=== PATIENT | male | born 1955 | race Caucasian/White ===

== ENCOUNTER 2019-06-06 12:01 | Inpatient (IN) ==
[2019-06-06] MEDS ORDERED: ALBUT/IPRATROP 3MG/0.5MG NEB 3 ML VIAL INH STA (13:02)
--- NOTE | 2019-06-06 13:24 | XRay Report ---
XR chest 1V portable CLINICAL HISTORY: SOB COMPARISON STUDY: No previous studies for comparison. FINDINGS: Moderate cardiomegaly. Prominent pulmonary vasculature. Small bilateral pleural effusions. PICC catheter in superior vena cava. IMPRESSION: 1. Congestive heart failure. 2. PICC catheter positioned in the superior vena cava. ACT 112: Negative or not required by law. The above report was generated using voice recognition software. It may contain grammatical, syntax or spelling errors. Electronically signed by: Pelon Posadas M.D. 06/06/2019 1:23 PM
[2019-06-06 13:43] LABS: Basophils # (auto) 0.02 K/uL (0-0.2); Basophils % (auto) 0.3 %; Eosinophils # (auto) 0.22 K/uL (0-0.5); Eosinophils % (auto) 3.4 %; Hematocrit (blood only) 27.6 % (42-52); Hemoglobin 8.8 g/dL (14.0-18.0); Immature Granulocytes # (auto) 0.07 K/uL (0.00-0.02); Immature Granulocytes % (auto) 1.1 %; Lymphocytes # (auto) 0.77 K/uL (1.2-3.4); Lymphocytes % (auto) 11.8 %; Mean Corpuscular Hemoglobin 30.1 pg (25-34); Mean Corpuscular Hgb Conc 31.9 g/dL (32-36); Mean Corpuscular Volume 94.5 fL (80-100); Mean Platelet Volume 9.4 fL (7.4-10.4); Monocytes # (auto) 0.81 K/uL (0.11-0.59); Monocytes % (auto) 12.4 %; Neutrophils # (auto) 4.66 K/uL (1.4-6.5); Platelet Count 202 K/uL (130-400); RDW Coefficient of Variation 13.7 % (11.5-14.5); RDW Standard Deviation 47.4 fL (36.4-46.3); Red Blood Count 2.92 M/uL (4.7-6.1); White Blood Count 6.55 K/uL (4.8-10.8)
[2019-06-06 14:00] LABS: INR 1.3 (0.9-1.1); Partial Thromboplastin Ratio 0.8; Partial Thromboplastin Time 21.6 Seconds (21.0-31.0); Prothrombin Time 13.4 Seconds (9.0-12.0)
[2019-06-06 14:04] LABS: Alanine Aminotransferase < 6 U/L (12-78); Albumin Level 1.8 gm/dl (3.4-5.0); Aspartate Aminotransferase 26 U/L (15-37); BUN Creatinine Ratio 7.1 (10-20); Blood Urea Nitrogen 24 mg/dl (7-18); Calcium 7.6 mg/dl (8.5-10.1); Carbon Dioxide 33 mmol/L (21-32); Chloride 104 mmol/L (98-107); Creatinine Clr Calc Pharmacy 26.8 ml/min; Est GFR (African American) 20.9; Glucose 96 mg/dl (70-99); Magnesium 1.7 mg/dl (1.8-2.4); Potassium 3.3 mmol/L (3.5-5.1); Sodium 139 mmol/L (136-145)
[2019-06-06 14:10] LABS: Albumin Globulin Ratio 0.3 (0.9-2); Alkaline Phosphatase 74 U/L (45-117); Bilirubin,Total < 0.1 mg/dl (0.2-1); Globulin 5.7 gm/dl (2.5-4.0); NT Pro B Type Natriuretic Pept 14276 pg/ml (0-900); Total Protein 7.5 gm/dl (6.4-8.2); Troponin I < 0.015 ng/ml (0-0.045)
[2019-06-06] MEDS ORDERED: FUROSEMIDE 40 MG/4 ML VIAL IV STA (14:26)
[2019-06-06] MEDS ORDERED: NITROGLYCERIN 2% OINTMENT 30GM TUBE EXT STA (14:26)
--- NOTE | 2019-06-06 15:23 | Ultrasound Report ---
US venous doppler LE BI HISTORY: Pain. Edema. swelling COMPARISON STUDY: None. FINDINGS: There is normal compressibility, flow, and augmentation within the bilateral lower extremit y deep venous systems. IMPRESSION: No DVT within the right or left lower extremity. ACT 112: Negative or not required by law. The above report was generated using voice recognition software. It may contain grammatical, syntax or spelling errors. Electronically signed by: Pelon Posadas M.D. 06/06/2019 3:22 PM
--- NOTE | 2019-06-06 15:24 | Ultrasound Report ---
US venous doppler UE LT HISTORY: Pain. Edema. poss clot COMPARISON STUDY: None. FINDINGS: The internal jugular vein is patent. There is normal flow within the subclavian vein. There is normal flow and compressibility within the left axillary, basilic, brachial, radial, ulnar, and v isualized cephalic veins. IMPRESSION: No DVT within the upper extremity. ACT 112: Negative or not required by law. The above report was generated using voice recognition software. It may contain grammatical, syntax or spelling errors. Electronically signed by: Pelon Posadas M.D. 06/06/2019 3:23 PM
--- NOTE | 2019-06-06 16:38 | Nephrology Consultation ---
Date of Consultation June 06, 2019 Assessment & Plan (1) GALEN (acute kidney injury): presenting creatinine 3.4; had been on progressive uptrend since 05/23 [facility] d/c. not oliguric. concern for glomerular process most likely given persistent gross hematuria versus acute interstitial nephritis; less likely ATN or prerenal process -check uacm and protein/creat ratio spot> see above -bladder scan post void q shift at least 2X and place mera for > 250 mL retained urine>has mera -daily bmp -Follow-up complement levels from [facility] which were pending at hospital discharge obtain records of weekly chemistries, hemoglobin, ESR that were planned at May 23 hospital discharge from [facility] >>these are in [employer] [facility] vancomycin as allergy (rash; possible AIN); pharmacy aware and updating Moderately low potassium and we are initiating diuresis: We will give 40 mill equivalents potassium now then 20 mill equivalents 3 times daily to start p.o. Present on Admission?: Yes (2) CHF (congestive heart failure): no prior history of this based on limited records available -will need careful diuresis: For now recommend strict intake and output, additional 40 mg IV Lasix x1 this evening then 40 mg IV Lasix 3 times daily starting tomorrow -Defer fluid limit for now will order less than 2 g daily sodium diet Follow-up pending echocardiogram -daily standing wt if possible Present on Admission?: Yes (3) Anemia: presenting hgb 8.8 -no indication for transfusoin; monitor for need -low iron stores noted; if no bacteremia, consider iron load Present on Admission?: Yes (4) Hematuria: suspect glomerular hematuria, given nephrotic range proteinuria given volume overload. Differential favors postinfectious glomerulonephritis, acute interstitial nephritis, mesangioproliferative glomerulonephritis. Not likely IgA nephropathy or thin basement membrane disease in this context. not a new issue - this was present last month per records cannot rule out need for renal biopsy though w/ his body habitus he may be a poor candidate -Follow-up renal imaging Obtain serologies sent at [facility] [place] (requested) as well as urine testing and nephro c/s, last nephro note there -Ordered sed rate for the morning as well as serologies; need to ask lab [facility] how to obtain anti GBM Ab ordered 3 separate specimens of urine for urine eosinophils Low threshold for urology consult given smoking and cancer /chemotherapy history -- likelier a glomerular process however Present on Admission?: Yes History of Present Illness Reason for Consultation: GALEN Requesting Physician: Dr. Teague Attending Physician: Dr. Teague History of Present Illness 64 y/o M whom I'm asked to see for GALEN after he was admitted here today for evaluation of altered mental status, new hypoxia and found on presentation to have acute renal failure w/ presenting creatinine 3.4. PMH includes rectal cancer completed CTX 2016 and also underwent surgery, chronic neuropathy which predates CA tx, chronic back pain, HTN, schizophrenia, depression, remote hx of EtOH and tobacco abuse, HL, chronic LLE edema, osteoarthritis right hip, status post lumbar laminectomy. Reported history of stones which needed no urologic intervention. Also recent extensive admission April 28 - May 23 at [facility] for MSSA bacteremia w/ sacral epidural and iliopsoas abscesses. Of note he was treated initially with vancomycin but developed a drug rash. Discharged on 2 g of cefazolin every 8 hours with 8 weeks of therapy planned, end date July 07, 2019. Discharge creatinine from [facility] 1.6 on May 23, 2019. D ischarge hemoglobin was 8.5. he also developed gross hematuria, present on May 22, 2019; as well as acute kidney injury. Baseline creatinine 0.7 early in the admission. 1.6 appears to have been peak creatinine on records available to me. there was concern for postinfectious GN versus acute i nterstitial nephritis from the antibiotics. There were occasional eosinophils noted in his urinary sediment on at least one occasion Renal ultrasound was negative. C3 and C4 were pending at discharge on the day prior to discharge. He was slated to follow-up in [place] with Dr. Canchola in nephrology. Plan at hospital discharge was for weekly CBC, CMP, ESR. Creatinine last week was 2.2; this week was 3.4. the patient received 40 mg of Lasix IV in the emergency department. Urine output documented with this and bladder scan negative for urinary retention. Noted on straight cath to have significant gross hematuria: Urinalysis with bright red blood, no evidence of infection, 6.5 g proteinuria on spot ratio. He follows w/ [facility] oncology, saw them 03/2019 and no evidence of recurrence and for 6 mo f/u. his creatinine in 03/2019 was 1.0; no full chem panel at the time. Patient states he has been starting to regain appetite, has been voiding gross blood since last month; denies uncontrolled pain or sob; denies n/v; + pedal but no other edema. states PT at [facility] not going well b/c tires easily and "b/c I'm lazy." No hx of following w/ urology in the past. No FH of CKD/ESRD. Allergies Allergy/AdvReac Type Severity Reaction Status Date / Time Penicillins Allergy Severe anaphylaxis Unverified 06/06/19 13:56 vancomycin Allergy Severe Rash Verified 06/06/19 18:53 chlordiazepoxide AdvReac Unknown nausea/vomi Unverified 06/06/19 13:56 ting tramadol AdvReac Unknown heart Unverified 06/06/19 13:56 racing Home Medications Home Medications Medication Instructions Recorded Confirmed Type aripiprazole 10 mg PO HS 02/21/19 06/06/19 History clorazepate dipotassium 7.5 mg PO QID 02/21/19 06/06/19 History cyclobenzaprine 10 mg PO BID 02/21/19 06/06/19 History divalproex 500 mg PO HS 02/21/19 06/06/19 History duloxetine 60 mg PO QAM 02/21/19 06/06/19 History famotidine 40 mg PO QAM 02/21/19 06/06/19 History gabapentin 200 mg PO TID 02/21/19 06/06/19 History Calcium-Vitamin D3 250-125mg 1 tab PO TID 06/06/19 06/06/19 History Heparin Flush 5ml 5 ml IV Q6H 06/06/19 06/06/19 History atenolol 25 mg PO QAM 06/06/19 06/06/19 History atorvastatin 20 mg PO QAM 06/06/19 06/06/19 History cefazolin in 0.9% sod chloride 2 g IV Q8H 06/06/19 06/06/19 History divalproex [Depakote] 250 mg PO QAM 06/06/19 06/06/19 History quetiapine [Seroquel XR] 300 mg PO HS 06/06/19 06/06/19 History Patient History Medical History Anxiety and depression Chronic thromboembolic pulmonary hypertension Constipation GERD (gastroesophageal reflux disease) High cholesterol History of alcohol abuse History of colon cancer s/p colostomy/reversal, s/p chemo/xrt (years ago) History of kidney stones Obesity Peripheral neuropathy Schizophrenia Surgical History History of colonoscopy History of colostomy History of colostomy reversal History of tonsillectomy Family History Other Family history of alcoholism Social History Preferred Language: Greenlandic Communication Ability: Effective Communication Ability Comment: short term memory Investor Required: No Beliefs That Will Affect Care: Yarsanism Yarsanism Beliefs: SABIANISM Current Living Situation: Alone Other Information That Helps Us Care for You: No Feels Safe at Home: Yes Safety Concerns: Feels Safe At This Time Smoking Status: Former smoker Tobacco Type: cigarettes ; Cigarettes Per Day: 1 PPD ; Hx Alcohol Use: No (Hx heavy ETOH use (no current ETOH use)) Hx Substance Use: Yes substance use type: other Substance Use Type Other:: "occasional joint"- inhalation; most recent 02/2019-- advised Review of Systems Review of Systems: All systems reviewed & are unremarkable except as noted in HPI & below Physical Exam 2 Constitutional: well developed, well nourished, + obese, cooperative and + edematous; no acute distress on 02NC 3L Eyes: EOM intact bilaterally ENMT: Ears: no external ear abnormality Nose: no external nose abnormality Mouth: + dry oral mucous membranes Neck: no nuchal rigidity Respiratory: normal respiratory effort Auscultation: + breath sounds absent (BL bases), + diminished lung sounds and + rhonchi (occasional lower post mario) Cardiovascular: Rate/Rhythm: regular rate and regular rhythm (occasional skipped beat) Extremities: + edema (2-3+ to hips) Gastrointestinal (Abdomen): Inspection/Auscultation: normal bowel sounds; abdomen not distended Percussion/Palpation: abdomen soft; abdomen nontender and no guarding Musculoskeletal: Extremities: strength 5/5 throughout generalized weakness; struggles to roll for lung exam Skin: no rashes, warm and dry Neurologic: marked psychomotor delay in movement and speech; resting BLUE variable tremor Psychiatric: Orientation: alert, oriented to person, oriented to place and cooperative Eye Contact: good eye contact Motor Behavior: + psychomotor retardation Affect: + blunted affect Genitourinary: mera w/ ample light red urine no clots Results & Data Vital Signs (Past 12 Hours) Vital Signs Temp Pulse Pulse Resp BP BP Pulse Ox 06/06/19 15:59 89 20 147/80 H 96 06/06/19 15:29 100 H 22 153/81 H 97 06/06/19 14:40 98 H 20 195/124 H 99 06/06/19 14:39 99 H 20 98 06/06/19 13:31 78 20 96 06/06/19 13:28 98 06/06/19 13:27 83 24 164/101 H 98 06/06/19 12:04 36.7 C 92 H 14 155/100 H 96 Laboratory Results 06/06/19 13:20 06/06/19 13:20 Diagnostic Findings cxr FINDINGS: Moderate cardiomegaly. Prominent pulmonary vasculature. Small bilateral pleural effusions. PICC catheter in superior vena cava. IMPRESSION: 1. Congestive heart failure. 2. PICC catheter positioned in the superior vena cava. Dopplers BLE and one UE negative for DVT Renal ultrasound report pending (1) CHF (congestive heart failure) Heart failure chronicity: unspecified Heart failure type: unspecified Qualified Code(s): I50.9 - Heart failure, unspecified (2) Anemia Anemia type: unspecified type Qualified Code(s): D64.9 - Anemia, unspecified
[2019-06-06 16:56] LABS: Appearance Urine Cloudy (Clear); Bacteria Urine Automated Negative (Negative); Bilirubin Urine Negative (Negative); Blood Urine 3+ (Negative); Color Urine Red; Glucose Urine UA Negative (Negative); Ketones Urine Negative (Negative); Leukocyte Esterase Urine 1+ (Negative); Nitrite Urine Negative (Negative); RBC Urine Automated >30 /hpf (0-4); Specific Gravity Urine 1.009 (1.000-1.030); Urobilinogen Urine Negative (Negative); pH Urine 7.5 (4.5-7.5)
[2019-06-06 17:12] LABS: Protein Urine 2+ (Negative); Sulfosalicylic Acid Urine Positive (Negative)
--- NOTE | 2019-06-06 17:17 | History & Physical Report ---
Date of Service June 06, 2019 Assessment & Plan (1) Altered mental status: (2) Hypoxia: (3) CHF (congestive heart failure): This is a 64-year-old male who has significant past medical history of history of rectal cancer status post resection and chemo and radiation in remission, schizophrenia, psychosis, depression with anxiety, hypertension, hyperlipidemia, GERD, history of alcohol and tobacco abuse, chronic thromboembolic pulmonary hypertension, autonomic peripheral neuropathy who presents to ED due to shortness of breath of unknown duration. Patient admitted to [facility] 05/08 to 05/23/2019 secondary to MSSA bacteremia, sacral epidural abscess, iliopsoas abscess, close sacral fracture placed on IV antibiotics cefazolin 2 g every 8 hours until 07/05/2019 Admitted to SNF 05/23/2019 with noted worsening confusion, lethargy, shortness of breath, concern for left upper extremity DVT. In ED patient was found to be significantly volume overload, chest x-ray with evidence of failure bilateral pleural effusions, worsened GALEN creatinine 3.36, platelet abnormalities and hematuria Admit to PCU Spoke with Dr. Peterson nephrology recommends IV Lasix 40 mg x 1 this evening and then 40 mg 3 times daily starting tomorrow Replace electrolytes appropriately Renal ultrasound pending, CT abdomen pelvis pending Echocardiogram ordered Daily weights, I's and O's Serial BMP (4) GALEN (acute kidney injury): BUN/creatinine 24 and 3.36 Creatinine September/2018 0.9 Creatinine at discharge from [facility] 05/21 1.59 Unknown etiology, + hematuria Bladder scan was negative for significant urinary retention Obtain renal ultrasound Urinalysis and urine studies pending Consult nephrology, proceed their input Hold IV cefazolin for now ? If ATN from antibiotic (5) Electrolyte abnormality: Replace K3.3, 40 M EQ x1 now and 20 M EQ 3 times daily Mag 1.7, 1 g mag sulfate now, repeat mag in a.m. (6) Epidural abscess: MSSA bacteremia Was on IV cefazolin 2 g every 8 hours Hold IV cefazolin for now, consult infectious disease Sensitivities to be placed in chart -sensitive to doxycycline, daptomycin, Cipro, gentamicin, levofloxacin, linezolid, Bactrim, tigecycline, Vanco Blood cultures are currently pending Antibiotic to complete 07/05/[address] (7) Iliopsoas abscess: MSSA bacteremia Was on IV cefazolin 2 g every 8 hours Hold IV cefazolin for now, consult infectious disease Sensitivities to be placed in chart -sensitive to doxycycline, daptomycin, Cipro, gentamicin, levofloxacin, linezolid, Bactrim, tigecycline, Vanco Blood cultures are currently pending Antibiotics to complete 07/05/2019 (8) Hematuria: Significant hematuria noted grossly with urination UA positive for RBC Renal ultrasound pending (9) Anemia: H&H 8.8 and 27.6 Only notable signs of bleeding is hematuria normocytic normochromic Iron panel, vitamin B12 and folic acid pending Possibly in setting of acute on chronic disease with bacteremia and iliopsoas and epidural abscess (10) Schizophrenia: Continue Abilify, Depakote, Seroquel Stable low Threshold to consult psychiatry given multiple psychiatric medications (11) Anxiety and depression: Continue Cymbalta, clorazepate (12) High cholesterol: Continue statin (13) DVT prophylaxis: SCD/teds Avoid chemical prophylaxis for now given significant hematuria noted with voiding Disposition: Admit to PCU, likely will need to return to SNF Follow-up: PCP Dr. Larsen upon discharge Patient was seen and examined in collaboration Dr. Teague, please see addendum History of Present Illness Chief Complaint: Shortness of breath x unknown duration. Primary Care Provider: Juice Garner This is a 64-year-old male who has significant past medical history of history of rectal cancer status post resection and chemo and radiation in remission, schizophrenia, psychosis, depression with anxiety, hypertension, hyperlipidemia, GERD, history of alcohol and tobacco abuse, chronic thromboembolic pulmonary hypertension, autonomic peripheral neuropathy who presents to ED due to shortness of breath of unknown duration. Patient is a very poor historian. His tory is obtained from other providers as well as [facility]. Apparently patient was sent to ED because of concern for blood clot in left upper extremity where he has a PICC line in place. An ultrasound was done at outside facility which was concerning for DVT. However, our ED physician ruled out DVT of left upper extremity and found patient to have evidence of congestive heart failure, new GALEN and anemia of unknown etiology. After speaking with [facility] it was found patient was hospitalized at [facility] on 05/08 to 05/23/2019 secondary to bacteremia due to MSSA secondary to iliopsoas abscess and sacral epidural abscess. He was placed on IV cefazolin 2 g every 8 hours. Left upper extremity PICC line was placed and he was transferred to SNF on 05/23/2019. At discharge patient H&H was 9.7, creatinine 1.59. According to nurse at SNF on admission patient was very alert and arousable and oriented. Over the past 15 days he has been becoming increasingly more confused and lethargic. He has been continuing to receive his IV antibiotics. Oral intake has been adequate per staff. I am unable to obtain accurate information from patient as he is currently confused stating he came from his apartment in [place]. He is unable to tell me why he is here. In ED work-up revealed elevated BUN and creatinine 24 and 3.36, K3.3, mag 1.7, proBNP 14,276, albumin 1.8, H&H 8.8 and 27.6, WBC 6.55. Chest x-ray revealed congestive heart failure, PICC placement in superior vena cava, small bilateral pleural effusions. Venous doppler or b/l lower ext and LUE negative for DVT. He received 40mg IV lasix while in ED. Allergies Allergy/AdvReac Type Severity Reaction Status Date / Time Penicillins Allergy Severe anaphylaxis Unverified 06/06/19 13:56 vancomycin Allergy Severe Rash Verified 06/06/19 18:53 chlordiazepoxide AdvReac Unknown nausea/vomi Unverified 06/06/19 13:56 ting tramadol AdvReac Unknown heart Unverified 06/06/19 13:56 racing Home Medications Home Medications Medication Instructions Recorded Confirmed Type aripiprazole 10 mg PO HS 02/21/19 06/06/19 History clorazepate dipotassium 7.5 mg PO QID 02/21/19 06/06/19 History cyclobenzaprine 10 mg PO BID 02/21/19 06/06/19 History divalproex 500 mg PO HS 02/21/19 06/06/19 History duloxetine 60 mg PO QAM 02/21/19 06/06/19 History famotidine 40 mg PO QAM 02/21/19 06/06/19 History gabapentin 200 mg PO TID 02/21/19 06/06/19 History Calcium-Vitamin D3 250-125mg 1 tab PO TID 06/06/19 06/06/19 History Heparin Flush 5ml 5 ml IV Q6H 06/06/19 06/06/19 History atenolol 25 mg PO QAM 06/06/19 06/06/19 History atorvastatin 20 mg PO QAM 06/06/19 06/06/19 History cefazolin in 0.9% sod chloride 2 g IV Q8H 06/06/19 06/06/19 History divalproex [Depakote] 250 mg PO QAM 06/06/19 06/06/19 History quetiapine [Seroquel XR] 300 mg PO HS 06/06/19 06/06/19 History Past Med/Surg History Medical History Anxiety and depression Chronic thromboembolic pulmonary hypertension Constipation GERD (gastroesophageal reflux disease) High cholesterol History of alcohol abuse History of colon cancer s/p colostomy/reversal, s/p chemo/xrt (years ago) History of kidney stones Obesity Peripheral neuropathy Schizophrenia Surgical History History of colonoscopy History of colostomy History of colostomy reversal History of tonsillectomy Family History Other Family history of alcoholism Social History Preferred Language: Pakistani Communication Ability: Effective Communication Ability Comment: short term memory 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 Beliefs That Will Affect Care: Sabianism Sabianism Beliefs: ADVENT Current Living Situation: Alone Other Information That Helps Us Care for You: No Feels Safe at Home: Yes Safety Concerns: Feels Safe At This Time Smoking Status: Former smoker Tobacco Type: cigarettes ; Cigarettes Per Day: 1 PPD ; Hx Alcohol Use: No (Hx heavy ETOH use (no current ETOH use)) Hx Substance Use: Yes substance use type: other Substance Use Type Other:: "occasional joint"- inhalation; most recent 02/2019-- advised Review of Systems Review of Systems: All systems reviewed & are unremarkable except as noted in HPI & below Physical Exam Physical Exam: Constitutional: WD/WN, obese, male, arousable, answers questions but inaccurately, vitals as above, NAD, sitting up in bed Head: Normocephalic, Atraumatic Eyes: PERRL, conjunctivae normal, anicteric sclerae ENMT: external ear and nose normal, oropharynx normal Neck: trachea midline, no thyromegaly normal visual inspection Respiratory: normal respiratory effort, lungs decreased bilaterally with bibasilar rhonchi, no wheezes or rales, on O2 via NCi. Normal insp/exp effort, no accessory muscle use Cardiovascular: RRR, no murmur, bilateral +2 lower extremity edema, scrotal edema, generalized anasarca, left upper extremity PICC line in place, bilateral radial pulse +2 and equal, no surrounding erythema, warmth. Vessels: no JVD or carotid bruit Chest: normal inspection of chest Abdomen: normal bowel sounds, protuberant abdomen, soft, nontender, no hepatosplenomegaly Musculoskeletal: no cyanosis or clubbing, extremities motor strength 5/5 Skin: no rashes, warm and dry normal turgor Neurologic: PERRL, EOMI, accommodation nl, no face palsy, no dysarthria CN's II-XI intact bilaterally and moves all extremities Psychiatric: A+Ox3 to basics only, euthymic affect Lymphatic: no cervical or axillary lymphadenopathy : deferred Results & Data Vital Signs (Past 12 Hours) Vital Signs Temp Pulse Pulse Resp BP BP Pulse Ox 06/06/19 15:59 89 20 147/80 H 96 06/06/19 15:29 100 H 22 153/81 H 97 06/06/19 14:40 98 H 20 195/124 H 99 06/06/19 14:39 99 H 20 98 06/06/19 13:31 78 20 96 06/06/19 13:28 98 06/06/19 13:27 83 24 164/101 H 98 06/06/19 12:04 36.7 C 92 H 14 155/100 H 96 Laboratory Results Short CBC 06/06/19 06/06/19 06/06/19 Range/Units 13:20 13:20 16:40 WBC 6.55 (4.8-10.8) K/uL Hgb 8.8 L (14.0-18.0) g/dL Hct 27.6 L (42-52) % Plt Count 202 (130-400) K/uL BUN 24 H (7-18) mg/dl Creatinine 3.36 H (0.6-1.4) mg/dl Urine Color Red BMP 06/06/19 13:20 Sodium 139 Potassium 3.3 L Chloride 104 Carbon Dioxide 33 H BUN 24 H Creatinine 3.36 H Glucose 96 Calcium 7.6 L Cardiac Enzymes 06/06/19 Range/Units 13:20 Troponin I < 0.015 (0-0.045) ng/ml Liver Function 06/06/19 Range/Units 13:20 Total Bilirubin < 0.1 L (0.2-1) mg/dl AST 26 (15-37) U/L ALT < 6 L (12-78) U/L Alkaline Phosphatase 74 (45-117) U/L Albumin 1.8 L (3.4-5.0) gm/dl Urine 06/06/19 Range/Units 16:40 Urine Color Red Urine Appearance Cloudy A (Clear) Urine pH 7.5 (4.5-7.5) Ur Specific [place] 1.009 (1.000-1.030) Urine Protein 2+ H (Negative) Urine Glucose (UA) Negative (Negative) Diagnostic Findings CXR: Ext Doppler: IMPRESSION: No DVT within the right or left lower extremity. IMPRESSION: No DVT within the right or left lower extremity. Medications Administered Discontinued Medications Albuterol (Duoneb) 3 ml INH NOW STA Stop: 06/06/19 13:03 Last Admin: 06/06/19 13:30 Dose: 3 ml Documented by: [id number] Furosemide (Lasix) 40 mg IV NOW STA Stop: 06/06/19 14:27 Last Admin: 06/06/19 15:31 Dose: 40 mg Documented by: [id number] Nitroglycerin (Nitro-Bid 2%) 2 inch EXT NOW STA Stop: 06/06/19 14:27 Last Admin: 06/06/19 14:46 Dose: 2 inch Documented by: [id number] ECG Rate (beats per minute): 89 Rhythm: normal sinus Findings: + PAC Code Status & VTE Plan Code Status Full Code VTE Prophylaxis Plan VTE Prophylaxis will be ordered: Yes Reason for no VTE drug order: Contraindicated Supervising Physician Co-Signing Physician Notes I have seen and examined the patient with physician call center assistant and would like to comment that On exam -Patient presented from [facility] apparently on IV antibiotics with PICC line for MSSA epidural abscess; patient sent here for confusion. during exam in the emergency room, patient awake and answers questions but gave a history that suggested that he came from his own apartment when in fact he is a current resident at [facility]. -Lung exam: normal respiratory effort, some congestion of the bases of the lung mario -Heart exam regular rate -PICC of left upper extremity -Abdomen: soft, nontender, positive bowel sounds -: mera placed on this admission with pink tinged urine ALTERED MENTAL STATUS HYPOXIA likely from ACUTE CONGESTIVE HEART FAILURE ACUTE KIDNEY INJURY ELECTROLYTE ABNORMALITY: HYPOKALEMIA, HYPOMAGNESEMIA GROSS HEMATURIA HISTORY OF EPIDURAL ABSCESS/ILIOPSOAS abscess/MSSA Bacteremia PRESENCE OF PICC LINE -history of treatment of IV antibiotics wit cefazolin for MSSA bacteremia -concern at this time is whether cefazolin has side effects such as the acute kidney injury -have requested nephrology consult but disagree with increasing the diuresis as the creatinine is already rising from admission of 3.36 to 3.52 already. In this month of May 2019, his previous creatinines were 1.67 and 2.24 -have therefor stopped any subsequent increases in furosemide -while patient has hypoxia and fluid overload of the lungs, he is relatively stable on 2 to 3 liters/min and so conservative management of volume status can be done -ultrasound of the lung mario to assess if any pleural effusions -CT abdomen did not show ureteral stone obstruction but there is hematuria now -will need Infectious disease consult to further advise any changes to outpatient antibiotic regimen -because if is unclear as to the when this PICC line was placed, medical doctor has placed communication to avoid use of PICC line for IV medications or blood d raws for now unless otherwise authorized by a medical doctor -follow cultures drawn on this admission -replace electrolytes of potassium or magnesium with oral or IV supplements with peripheral IV access My colleague Dr. Perla will follow the patient starting on 06/07/2019 (1) CHF (congestive heart failure) Heart failure chronicity: unspecified Heart failure type: unspecified Qualified Code(s): I50.9 - Heart failure, unspecified (2) Anemia Anemia type: unspecified type Qualified Code(s): D64.9 - Anemia, unspecified
[2019-06-06 17:46] LABS: Ferritin 293.5 ng/ml (8-388); Folate (Folic Acid) 12.44 ng/ml (>5.38); T4 Free Thyroxine 1.04 ng/dl (0.8-1.6); Thyroid Stimulating Hormone 1.87 uIu/ml (0.300-4.500)
[2019-06-06 17:52] LABS: Creatinine Urine Random 33.8 mg/dl; Protein Creatinine Ratio Urine 6.5 (0-0.2); Total Protein Urine Random 218.8 mg/dl (0-11.9)
--- NOTE | 2019-06-06 18:24 | Ultrasound Report ---
US effusion-chest/mediastinum CLINICAL HISTORY: CHF, pleural effusion COMPARISON STUDY: No previous studies for comparison. FINDINGS: Ultrasonography the chest was performed. There are bilateral pleural effusions with underly ing atelectatic lung. The right pleural effusion is estimated measure 550 cc, the left pleural effusi on 530 cc. IMPRESSION: Bilateral pleural effusions estimated to measure 550 cc on the right and 530 cc on the l eft. ACT 112: Negative or not required by law. Electronically signed by: Rey Zambrano M.D. 06/06/2019 6:23 PM
--- NOTE | 2019-06-06 18:27 | Ultrasound Report ---
EXAMINATION: RENAL ULTRASOUND CLINICAL HISTORY: Acute renal insufficiency COMPARISON STUDY: FINDINGS: The right kidney measures 14 cm. The left kidney measures 14 cm. There is no evidence of h ydronephrosis. There is a suspected 8 mm lower pole left renal calculus. There is increased renal co rtical echogenicity consistent with medical renal disease. No bladder masses were visualized. The right ureteral jet was not visualized. IMPRESSION : 1. No renal masses identified. No evidence of hydronephrosis 2. Slight increase in renal cortical echogenicity, a finding consistent with medical renal disease 3. Left-sided nephrolithiasis ACT 112: Negative or not required by law. Electronically signed by: Rey Zambrano M.D. 06/06/2019 6:25 PM
--- NOTE | 2019-06-06 18:32 | CT Scan Report ---
CT SCAN OF THE ABDOMEN AND PELVIS WITHOUT CONTRAST CLINICAL HISTORY: Abdominal pain COMPARISON STUDY: Renal ultrasound dated 06/06/2019 TECHNIQUE: CT scan of the abdomen and pelvis was performed from the lung bases to the proximal femurs . Images are reviewed in the axial, sagittal, and coronal planes. IV contrast was not administered fo r this examination. A dose lowering technique was utilized adhering to the principles of ALARA. CT DOSE: 1368.51 mGy.cm FINDINGS: Lower chest: There are moderate bilateral pleural effusions. There is a small pericardial effusion. T here are dependent lower lobe atelectatic changes. Liver: The unenhanced liver is normal in size, contour, and attenuation. There is no intrahepatic sofie iary ductal dilatation. Gallbladder: Unremarkable. Spleen: Normal in size and attenuation. Pancreas: Unremarkable. Adrenal glands: Unremarkable. Kidneys: There is no hydronephrosis. There are several left renal calculi, the largest of which measu res 6 mm. No ureteral or bladder calculi are visualized. Bowel: There are no transition zones to indicate bowel obstruction. There are no findings to indicate acute appendicitis. There is a low rectosigmoid anastomotic suture line. There is presacral soft tis pearl thickening, possibly treatment related. There is a right anterior mid abdominal bowel anastomotic suture line. Peritoneum: There is no free air. There is trace pelvic fluid/retroperitoneal stranding. Vasculature: The abdominal aorta is normal in course and caliber. Adenopathy: None. Pelvic viscera: Prostatic calcifications are visualized. The prostate is borderline enlarged. Skeletal structures: No destructive osseous lesions are seen. Infiltration of subcutaneous fat within the right lower quadrant is nonspecific but could relate to a prior ostomy site. IMPRESSION: 1. Postsurgical changes involving the bowel with presacral soft tissue thickening, likely treatment-r elated 2. No evidence of bowel obstruction. No evidence of free air 3. Left-sided nephrolithiasis. No ureteral or bladder calculi identified 4. Moderate bilateral pleural effusions with associated lower lobe compressive atelectatic change 5. Mild generalized body wall edema ACT 112: Negative or not required by law. Electronically signed by: Rey Zambrano M.D. 06/06/2019 6:31 PM
[2019-06-06] MEDS ORDERED: LIDOCAINE 2% JELLY 5 ML TUBE ONE (18:38)
[2019-06-06] MEDS ORDERED: ONDANSETRON INJ 2 MG/ML 2 ML VIAL IV PRN (18:51)
[2019-06-06] MEDS ORDERED: POTASSIUM CHLORIDE 20 MEQ TABCR PO STA (18:51)
[2019-06-06] MEDS ORDERED: ACETAMINOPHEN 325 MG TAB PO PRN (18:51)
[2019-06-06] MEDS ORDERED: POLYETHYLENE (MIRALAX) 17 GM PACK PO PRN (18:51)
[2019-06-06] MEDS ORDERED: MAGNESIUM SULFATE / D5W 1 GM/100 ML BAG IV ONE (19:15)
[2019-06-06] MEDS ORDERED: FUROSEMIDE 40 MG in SYRINGE 0 ML IV ONE (19:30)
--- NOTE | 2019-06-06 19:33 | Emergency Department Note ---
Entered by Mariela Woods acting as a scribe for Santiago Monroe MD History of Present Illness General Chief complaint: Shortness of Breath/Dyspnea Time Seen by Provider: 06/06/19 12:47 Source: patient and EMS Mode of arrival: EMS History of Present Illness Location: upper extremity (left upper) Pain Consistency: + other (episode) Quality: + other (possible DVT) Associated symptoms: + shortness of breath and + other (swelling in bilateral legs) The patient is a 64 year old male that is presenting to the Emergency Room with complaints of an episode of a possible left upper extremity DVT. The patient arrived to the ED via EMS from [facility]. EMS reports that the patients nursing staff stated that the patient has been increasingly short of breath. EMS notes that the patient was thought to have a DVT secondary to a PICC line in his left upper arm. The patient reports that he is unsure why is in the ED today. He states that he feels a little short of breath with speaking. He notes that his feet are swollen. HPI and ROS are unobtainable secondary to the patients mental state. Home Medications Home Medications Medication Instructions Recorded Confirmed Type aripiprazole 10 mg PO HS 02/21/19 06/06/19 History clorazepate dipotassium 7.5 mg PO QID 02/21/19 06/06/19 History cyclobenzaprine 10 mg PO BID 02/21/19 06/06/19 History divalproex 500 mg PO HS 02/21/19 06/06/19 History duloxetine 60 mg PO QAM 02/21/19 06/06/19 History famotidine 40 mg PO QAM 02/21/19 06/06/19 History gabapentin 200 mg PO TID 02/21/19 06/06/19 History Calcium-Vitamin D3 250-125mg 1 tab PO TID 06/06/19 06/06/19 History Heparin Flush 5ml 5 ml IV Q6H 06/06/19 06/06/19 History atenolol 25 mg PO QAM 06/06/19 06/06/19 History atorvastatin 20 mg PO QAM 06/06/19 06/06/19 History cefazolin in 0.9% sod chloride 2 g IV Q8H 06/06/19 06/06/19 History divalproex [Depakote] 250 mg PO QAM 06/06/19 06/06/19 History quetiapine [Seroquel XR] 300 mg PO HS 06/06/19 06/06/19 History Allergies Allergy/AdvReac Type Severity Reaction Status Date / Time Penicillins Allergy Severe anaphylaxis Unverified 06/06/19 13:56 vancomycin Allergy Severe Rash Verified 06/06/19 18:53 chlordiazepoxide AdvReac Unknown nausea/vomi Unverified 06/06/19 13:56 ting tramadol AdvReac Unknown heart Unverified 06/06/19 13:56 racing Past Med/Surg History Medical History Anxiety and depression Chronic thromboembolic pulmonary hypertension Constipation GERD (gastroesophageal reflux disease) High cholesterol History of alcohol abuse History of colon cancer s/p colostomy/reversal, s/p chemo/xrt (years ago) History of kidney stones Obesity Peripheral neuropathy Schizophrenia Surgical History History of colonoscopy History of colostomy History of colostomy reversal History of tonsillectomy Family History Other Family history of alcoholism Social History Preferred Language: Kazakh Communication Ability: Effective Communication Ability Comment: short term memory Wax Engraver Required: No Beliefs That Will Affect Care: Latter Day Latter Day Beliefs: QUAKER Current Living Situation: Alone Other Information That Helps Us Care for You: No Feels Safe at Home: Yes Safety Concerns: Feels Safe At This Time Smoking Status: Former smoker Tobacco Type: cigarettes ; Cigarettes Per Day: 1 PPD ; Hx Alcohol Use: No (Hx heavy ETOH use (no current ETOH use)) Hx Substance Use: Yes substance use type: other Substance Use Type Other:: "occasional joint"- inhalation; most recent 02/2019-- advised Review of Systems HPI and ROS are unobtainable secondary to the patients mental state. Physical Exam Vital Signs Vital Signs - 24 hr 06/06/19 12:04 06/06/19 13:27 06/06/19 13:28 Temperature 36.7 C Temperature Source Oral Pulse Rate 92 H Pulse Rate [Apical] 83 Pulse Rhythm [Apical] Regular Pulse Strength [Apical] Normal Respiratory Rate 14 24 Respiratory Effort / Characteristics Non-Labored Non-Labored Spontaneous Respiratory Depth Normal Normal Blood Pressure 155/100 H Blood Pressure [Right Arm] 164/101 H Blood Pressure Mean 118 Blood Pressure Mean [Right Arm] 122 Blood Pressure Position [Right Arm] Sitting Pulse Oximetry 96 98 98 Oxygen Delivery Method Room Air Nasal Cannula Nasal Cannula Oxygen Flow Rate 3 3 3 Sepsis Recent Fever Within 48 Hours No Sepsis New/Unexplained Change in Mental Status No Sepsis Action Taken by Nursing No Action Required 06/06/19 13:31 06/06/19 14:39 06/06/19 14:40 Temperature Temperature Source Pulse Rate 99 H Pulse Rate [Apical] 78 98 H Pulse Rhythm [Apical] Regular Pulse Strength [Apical] Normal Respiratory Rate 20 20 20 Respiratory Effort / Characteristics Non-Labored Respiratory Depth Normal Blood Pressure Blood Pressure [Right Arm] 195/124 H Blood Pressure Mean Blood Pressure Mean [Right Arm] 147 Blood Pressure Position [Right Arm] Lying Pulse Oximetry 96 98 99 Oxygen Delivery Method Nasal Cannula Nasal Cannula Nasal Cannula Oxygen Flow Rate 3 3 3 Sepsis Recent Fever Within 48 Hours Sepsis New/Unexplained Change in Mental Status Sepsis Action Taken by Nursing 06/06/19 15:29 06/06/19 15:59 Temperature Temperature Source Pulse Rate Pulse Rate [Apical] 100 H 89 Pulse Rhythm [Apical] Pulse Strength [Apical] Respiratory Rate 22 20 Respiratory Effort / Characteristics Non-Labored Spontaneous Non-Labored Spontaneous Respiratory Depth Blood Pressure Blood Pressure [Right Arm] 153/81 H 147/80 H Blood Pressure Mean Blood Pressure Mean [Right Arm] 105 102 Blood Pressure Position [Right Arm] Lying Lying Pulse Oximetry 97 96 Oxygen Delivery Method Nasal Cannula Nasal Cannula Oxygen Flow Rate 3 Sepsis Recent Fever Within 48 Hours Sepsis New/Unexplained Change in Mental Status Sepsis Action Taken by Nursing GENERAL: Patient is in no acute distress. HEENT: No acute trauma, normocephalic atraumatic, mucous membranes moist, no nasal congestion, no scleral icterus. NECK: No stridor, no adenopathy, no meningismus, trachea is midline. LUNGS: Wheezing bilaterally. No crackles. No respiratory distress. Equal breath sounds. HEART: Without murmurs gallops or rubs, regular rate and rhythm. ABDOMEN: Soft, nontender, bowel sounds positive, no hernias, no peritonitis. EXTREMITIES: No cyanosis, full range of motion of all the joints without pain or difficulty, no signs for acute trauma. Moderate bilateral pedal edema. PICC line in left medial bicep. NEUROLOGIC: Awake and alert, no acute motor or sensory deficits, no focal weakness. SKIN: No rash, no jaundice, no diaphoresis. Course Course 1256:The patient was evaluated in room A04B. A complete history and physical examination was performed. 1531: I discussed the patients case with JACKY Lopez, who will evaluate the patient for further management and care with Dr. Teague as the attending physician. 1600: Upon reevaluation, the patient is resting comfortably. I discussed laboratory and radiographic results with the patient. He verbalized agreement of the treatment plan. The patient will be evaluated for further management and care. Administered Medications Aripiprazole (Abilify) 10 mg PO HS JOSE GUADALUPE Stop: 07/06/19 20:59 Last Admin: 06/06/19 20:02 Dose: 10 mg Documented by: [id number] Divalproex Sodium (Depakote Delay Release) 500 mg PO HS JOSE GUADALUPE Stop: 07/06/19 20:59 Last Admin: 06/06/19 20:03 Dose: 500 mg Documented by: [id number] Multivitamins/Minerals (Caltrate Plus) 1 tab PO TID JOSE GUADALUPE Stop: 07/06/19 20:59 Last Admin: 06/06/19 20:03 Dose: 1 tab Documented by: [id number] Discontinued Medications Albuterol (Duoneb) 3 ml INH NOW STA Stop: 06/06/19 13:03 Last Admin: 06/06/19 13:30 Dose: 3 ml Documented by: [id number] Furosemide (Lasix) 40 mg IV NOW STA Stop: 06/06/19 14:27 Last Admin: 06/06/19 15:31 Dose: 40 mg Documented by: [id number] Magnesium Sulfate/Dextrose (Magnesium Sulfate / D5w) 1 gm in 100 mls @ 100 mls/hr IV ONE ONE Stop: 06/06/19 20:14 Last Admin: 06/06/19 19:58 Dose: 100 mls/hr Documented by: [id number] Furosemide 40 mg/ Syringe 4 mls @ 4 mls/min IV NOW ONE Stop: 06/06/19 19:31 Last Admin: 06/06/19 20:01 Dose: 4 mls/min Documented by: [id number] Nitroglycerin (Nitro-Bid 2%) 2 inch EXT NOW STA Stop: 06/06/19 14:27 Last Admin: 06/06/19 14:46 Dose: 2 inch Documented by: [id number] Potassium Chloride (Klor-Con M20) 40 meq PO NOW STA Stop: 06/06/19 18:52 Last Admin: 06/06/19 20:02 Dose: 40 meq Documented by: [id number] Medical Decision Making Differential Diagnosis Differential diagnosis: Etiologies such as PE, DVT, exacerbation of COPD, anemia, CHF, electrolyte imbalance, coagulopathy, renal or liver failure as well as others were entertained. Medical Records Attestation: I reviewed the patient's medical records. Home Medications Current Medication List: was personally reviewed by me Laboratory Data Attestation: I reviewed the patient's lab results. Result diagrams: 06/06/19 13:20 06/06/19 19:10 Lab Results 06/06/19 06/06/19 06/06/19 Range/Units 13:20 13:20 13:20 WBC 6.55 (4.8-10.8) K/uL RBC 2.92 L (4.7-6.1) M/uL Hgb 8.8 L (14.0-18.0) g/dL Hct 27.6 L (42-52) % MCV 94.5 (80-100) fL MCH 30.1 (25-34) pg MCHC 31.9 L (32-36) g/dL RDW Std Deviation 47.4 H (36.4-46.3) fL RDW Coeff of Eladio 13.7 (11.5-14.5) % Plt Count 202 (130-400) K/uL MPV 9.4 (7.4-10.4) fL Immature Gran % (Auto) 1.1 % Neut % (Auto) 71.0 % Lymph % (Auto) 11.8 % [place] % (Auto) 12.4 % Eos % (Auto) 3.4 % Baso % (Auto) 0.3 % Immature Gran # (Auto) 0.07 H (0.00-0.02) K/uL Neut # (Auto) 4.66 (1.4-6.5) K/uL Lymph # (Auto) 0.77 L (1.2-3.4) K/uL [place] # (Auto) 0.81 H (0.11-0.59) K/uL Eos # (Auto) 0.22 (0-0.5) K/uL Baso # (Auto) 0.02 (0-0.2) K/uL PT 13.4 H (9.0-12.0) Seconds INR 1.3 H (0.9-1.1) APTT 21.6 (21.0-31.0) Seconds PTT Ratio 0.8 Sodium 139 (136-145) mmol/L Potassium 3.3 L (3.5-5.1) mmol/L Chloride 104 (98-107) mmol/L Carbon Dioxide 33 H (21-32) mmol/L Anion Gap 2.0 L (3-11) BUN 24 H (7-18) mg/dl Creatinine 3.36 H (0.6-1.4) mg/dl Est Cr Clr Drug Dosing 26.8 ml/min Est GFR ( Amer) 20.9 Est GFR (Non-Af Amer) 18.0 BUN/Creatinine Ratio 7.1 L (10-20) Glucose 96 (70-99) mg/dl Calcium 7.6 L (8.5-10.1) mg/dl Magnesium 1.7 L (1.8-2.4) mg/dl Total Bilirubin < 0.1 L (0.2-1) mg/dl AST 26 (15-37) U/L ALT < 6 L (12-78) U/L Alkaline Phosphatase 74 (45-117) U/L Troponin I < 0.015 (0-0.045) ng/ml NT-Pro-B Natriuret Pep 79480 H (0-900) pg/ml Total Protein 7.5 (6.4-8.2) gm/dl Albumin 1.8 L (3.4-5.0) gm/dl Globulin 5.7 H (2.5-4.0) gm/dl Albumin/Globulin Ratio 0.3 L (0.9-2) Urine Color Urine Appearance (Clear) Urine pH (4.5-7.5) Ur Specific [place] (1.000-1.030) Urine Protein (Negative) Urine Glucose (UA) (Negative) Urine Ketones (Negative) Urine Blood (Negative) Urine Nitrite (Negative) Urine Bilirubin (Negative) Urine Urobilinogen (Negative) Ur Leukocyte Esterase (Negative) Urine WBC (Auto) (0-5) /hpf Urine RBC (Auto) (0-4) /hpf U Hyaline Cast (Auto) (0-5) /lpf U Epithel Cells (Auto) (0-5) /lpf Urine Bacteria (Auto) (Negative) Ur Random Creatinine mg/dl U Random Total Protein (0-11.9) mg/dl Protein/Creatinin Ratio (0-0.2) Valproic Acid (50-100) mcg/ml 06/06/19 06/06/19 06/06/19 Range/Units 13:20 16:40 16:40 WBC (4.8-10.8) K/uL RBC (4.7-6.1) M/uL Hgb (14.0-18.0) g/dL Hct (42-52) % MCV (80-100) fL MCH (25-34) pg MCHC (32-36) g/dL RDW Std Deviation (36.4-46.3) fL RDW Coeff of Eladio (11.5-14.5) % Plt Count (130-400) K/uL MPV (7.4-10.4) fL Immature Gran % (Auto) % Neut % (Auto) % Lymph % (Auto) % [place] % (Auto) % Eos % (Auto) % Baso % (Auto) % Immature Gran # (Auto) (0.00-0.02) K/uL Neut # (Auto) (1.4-6.5) K/uL Lymph # (Auto) (1.2-3.4) K/uL [place] # (Auto) (0.11-0.59) K/uL Eos # (Auto) (0-0.5) K/uL Baso # (Auto) (0-0.2) K/uL PT (9.0-12.0) Seconds INR (0.9-1.1) APTT (21.0-31.0) Seconds PTT Ratio Sodium (136-145) mmol/L Potassium (3.5-5.1) mmol/L Chloride (98-107) mmol/L Carbon Dioxide (21-32) mmol/L Anion Gap (3-11) BUN (7-18) mg/dl Creatinine (0.6-1.4) mg/dl Est Cr Clr Drug Dosing ml/min Est GFR ( Amer) Est GFR (Non-Af Amer) BUN/Creatinine Ratio (10-20) Glucose (70-99) mg/dl Calcium (8.5-10.1) mg/dl Magnesium (1.8-2.4) mg/dl Total Bilirubin (0.2-1) mg/dl AST (15-37) U/L ALT (12-78) U/L Alkaline Phosphatase (45-117) U/L Troponin I (0-0.045) ng/ml NT-Pro-B Natriuret Pep (0-900) pg/ml Total Protein (6.4-8.2) gm/dl Albumin (3.4-5.0) gm/dl Globulin (2.5-4.0) gm/dl Albumin/Globulin Ratio (0.9-2) Urine Color Red Urine Appearance Cloudy A (Clear) Urine pH 7.5 (4.5-7.5) Ur Specific [place] 1.009 (1.000-1.030) Urine Protein 2+ H (Negative) Urine Glucose (UA) Negative (Negative) Urine Ketones Negative (Negative) Urine Blood 3+ H (Negative) Urine Nitrite Negative (Negative) Urine Bilirubin Negative (Negative) Urine Urobilinogen Negative (Negative) Ur Leukocyte Esterase 1+ H (Negative) Urine WBC (Auto) 5-10 H (0-5) /hpf Urine RBC (Auto) >30 H (0-4) /hpf U Hyaline Cast (Auto) 1-5 (0-5) /lpf U Epithel Cells (Auto) 10-20 H (0-5) /lpf Urine Bacteria (Auto) Negative (Negative) Ur Random Creatinine 33.8 mg/dl U Random Total Protein 218.8 H (0-11.9) mg/dl Protein/Creatinin Ratio 6.5 H (0-0.2) Valproic Acid 35 L (50-100) mcg/ml Imaging Data Radiologist's Impression: Radiology results as stated below per my review and the radiologist's interpretation: XR chest 1V portable CLINICAL HISTORY: SOB COMPARISON STUDY: No previous studies for comparison. FINDINGS: Moderate cardiomegaly. Prominent pulmonary vasculature. Small bilateral pleural effusions. PICC catheter in superior vena cava. IMPRESSION: 1. Congestive heart failure. 2. PICC catheter positioned in the superior vena cava. ACT 112: Negative or not required by law. The above report was generated using voice recognition software. It may contain grammatical, syntax or spelling errors. Electronically signed by: Pelon Posadas M.D. 06/06/2019 1:23 PM US venous doppler UE LT HISTORY: Pain. Edema. poss clot COMPARISON STUDY: None. FINDINGS: The internal jugular vein is patent. There is normal flow within the subclavian vein. There is normal flow and compressibility within the left axillary, basilic, brachial, radial, ulnar, and visualized cephalic veins. IMPRESSION: No DVT within the upper extremity. ACT 112: Negative or not required by law. The above report was generated using voice recognition software. It may contain grammatical, syntax or spelling errors. Electronically signed by: Pelon Posadas M.D. 06/06/2019 3:23 PM US venous doppler LE BI HISTORY: Pain. Edema. swelling COMPARISON STUDY: None. FINDINGS: There is normal compressibility, flow, and augmentation within the bilateral lower extremity deep venous systems. IMPRESSION: No DVT within the right or left lower extremity. ACT 112: Negative or not required by law. The above report was generated using voice recognition software. It may contain grammatical, syntax or spelling errors. Electronically signed by: Pelon Posadas M.D. 06/06/2019 3:22 PM ECG Data Attestation: I personally reviewed and interpreted this ECG as follows: Indication: + SOB/dyspnea Rate (beats per minute): 89 Rhythm: + sinus rhythm ECG ST segments: no ST elevation ECG Findings: + PACs and + Other (QT-c 459); no PVCs Blood Pressure Blood Pressure Findings: Elevated blood pressure Blood Pressure Disposition: Referred to patients primary care provider MDM Narrative There is no leukocytosis. The patient is anemic but this appears baseline looking back at some previous testing. Platelet count was normal. INR was slightly elevated at 1.3. Renal panel testing showed renal failure with a creatinine of over 3. Patient had a low magnesium value. Calcium slightly low. BNP was elevated consistent with fluid overload. EKG showed a sinus rhythm, no acute ischemia. Cardiac enzyme testing x1 was consistent with acute cardiac injury. No worrisome liver enzyme elevation. The patient appeared to be in a euthyroid state. Urinalysis showed hematuria, no true evidence for infection. Valproic acid level was slightly low at 35. Chest film shows CHF. Left upper extremity and bilateral lower extremity ultrasounds show no evidence for acute DVT. The patient was given a DuoNeb because of his wheezing. He received nitroglycerin paste and IV Lasix because of the diagnosis of heart failure. The Nitropaste did also help his blood pressure. The patient does not have any evidence for DVT however, he is in acute renal failure, he has evidence for CHF and fluid overload. Certainly, the CHF I think explains his complaint of shortness of breath. The cause for the CHF, the hematuria, the acute kidney injury is unclear. Further care and work-up is required in the hospital. I spoke to the patient, I spoke with his niece, case management has been involved. The on-call hospitalist was consulted. Continuous Cardiac Monitoring: An order for continuous cardiac monitoring was placed. Indication: SOB Rhythm: Sinus rhythm Rate: 81bpm Impression & Plan Shortness of breath, CHF (congestive heart failure), GALEN (acute kidney injury), Edema, Anemia Discharge Plan Visit Data *Final* Discharge Date/Time: 06/06/19 17:14 Chief Complaint: Shortness of Breath/Dyspnea ED Provider: Santiago Monroe Discharge Problem: Shortness of breath, CHF (congestive heart failure), GALEN (acute kidney injury), Edema, Anemia Patient Disposition: Admitted As Inpatient Discharge Instructions Interventions: ED Discharge Assessment Last Done: 06/06/19 17:14 Discharge Problem: CHF (congestive heart failure) Qualifiers: Heart failure type: unspecified Heart failure chronicity: unspecified Qualified Code(s): I50.9 - Heart failure, unspecified Edema Qualifiers: Edema type: unspecified Qualified Code(s): R60.9 - Edema, unspecified Anemia Qualifiers: Anemia type: unspecified type Qualified Code(s): D64.9 - Anemia, unspecified The scribe's documentation has been prepared under my direction and personally reviewed by me in its entirety. I confirm that the note above accurately reflects all work, treatment, procedures, and medical decision making performed by me.
[2019-06-06 19:54] LABS: BUN Creatinine Ratio 8.1 (10-20); Calcium 7.7 mg/dl (8.5-10.1); Creatinine Clr Calc Pharmacy 24.2 ml/min; Est GFR (African American) 19.8; Est GFR (Non-African American) 17.1; Potassium 3.2 mmol/L (3.5-5.1)
[2019-06-06] MEDS ORDERED: FUROSEMIDE 40 MG/4 ML VIAL IV ONE (20:00)
[2019-06-06] MEDS: ARIPiprazole 10 MG TAB PO SCH (20:02)
[2019-06-06] MEDS: DIVALPROEX DELAY RELEASE 500 MG TAB PO SCH (20:03)
[2019-06-06] MEDS: CALCIUM 600MG + VIT D 400 IU TAB PO SCH (20:03)
[2019-06-06] MEDS ORDERED: QUETIAPINE FUMARATE 200 MG TABCR PO SCH (21:00)
[2019-06-06] MEDS ORDERED: QUETIAPINE FUMARATE 50 MG TABCR PO SCH (21:00)
[2019-06-06] MEDS ORDERED: QUETIAPINE FUMARATE 300 MG TABCR PO SCH (21:00)
[2019-06-06] MEDS ORDERED: ONDANSETRON 4 MG OD TAB PO PRN (22:11)
[2019-06-06] MEDS ORDERED: FUROSEMIDE 40 MG in SYRINGE 0 ML IV SCH (23:00)
[2019-06-06] MEDS: CLORAZEPATE DIPOTASSIUM 3.75 MG TAB PO SCH (23:30)
[2019-06-06] MEDS: POTASSIUM CHLORIDE 20 MEQ TABCR PO SCH (23:30)
[2019-06-07 05:50] LABS: Basophils # (auto) 0.02 K/uL (0-0.2); Basophils % (auto) 0.3 %; Eosinophils % (auto) 3.4 %; Hematocrit (blood only) 24.3 % (42-52); Hemoglobin 7.6 g/dL (14.0-18.0); Immature Granulocytes # (auto) 0.04 K/uL (0.00-0.02); Immature Granulocytes % (auto) 0.7 %; Lymphocytes # (auto) 0.63 K/uL (1.2-3.4); Lymphocytes % (auto) 10.8 %; Mean Corpuscular Hemoglobin 29.6 pg (25-34); Mean Corpuscular Hgb Conc 31.3 g/dL (32-36); Mean Corpuscular Volume 94.6 fL (80-100); Mean Platelet Volume 9.2 fL (7.4-10.4); Monocytes # (auto) 0.69 K/uL (0.11-0.59); Monocytes % (auto) 11.9 %; Neutrophils # (auto) 4.23 K/uL (1.4-6.5); Neutrophils % (auto) 72.9 %; Platelet Count 185 K/uL (130-400); RDW Coefficient of Variation 13.7 % (11.5-14.5); RDW Standard Deviation 47.3 fL (36.4-46.3); Red Blood Count 2.57 M/uL (4.7-6.1); White Blood Count 5.81 K/uL (4.8-10.8)
[2019-06-07] MEDS: CLORAZEPATE DIPOTASSIUM 3.75 MG TAB PO SCH ×4 (06:16→23:18)
[2019-06-07 06:21] LABS: Hypochromasia Present
[2019-06-07 06:22] LABS: Alanine Aminotransferase < 6 U/L (12-78); Albumin Level 1.7 gm/dl (3.4-5.0); Aspartate Aminotransferase 19 U/L (15-37); BUN Creatinine Ratio 7.6 (10-20); Blood Urea Nitrogen 28 mg/dl (7-18); Calcium 7.7 mg/dl (8.5-10.1); Carbon Dioxide 33 mmol/L (21-32); Chloride 105 mmol/L (98-107); Creatinine Clr Calc Pharmacy 23.4 ml/min; Est GFR (African American) 18.9; Est GFR (Non-African American) 16.3; Glucose 88 mg/dl (70-99); Magnesium 1.8 mg/dl (1.8-2.4); Potassium 3.4 mmol/L (3.5-5.1); Sodium 141 mmol/L (136-145)
[2019-06-07 06:25] LABS: Albumin Globulin Ratio 0.3 (0.9-2); Alkaline Phosphatase 66 U/L (45-117); Bilirubin,Total 0.2 mg/dl (0.2-1); Globulin 5.3 gm/dl (2.5-4.0)
[2019-06-07] MEDS ORDERED: PERFLUTREN LIPID MICROSPHERE (DEFINITY) IV ONE (08:04)
[2019-06-07] MEDS: CALCIUM 600MG + VIT D 400 IU TAB PO SCH ×3 (08:33→20:47)
[2019-06-07] MEDS: ATORVASTATIN 20 MG TAB PO SCH (08:34)
[2019-06-07] MEDS: POTASSIUM CHLORIDE 20 MEQ TABCR PO SCH ×3 (08:34→20:46)
[2019-06-07] MEDS: FAMOTIDINE 40 MG TABLET PO SCH (08:35)
[2019-06-07] MEDS: DULOXETINE HCL 60 MG CAP PO SCH (08:35)
[2019-06-07] MEDS: DIVALPROEX DELAY RELEASE 250 MG TABEC PO SCH (08:35)
[2019-06-07] MEDS ORDERED: FUROSEMIDE 40 MG/4 ML VIAL IV SCH (09:00)
[2019-06-07] MEDS ORDERED: ATENOLOL 25 MG TABLET PO SCH (09:00)
[2019-06-07 09:15] LABS: Hepatitis B Surface Antigen Neg (Neg)
[2019-06-07 09:43] LABS: Hepatitis C IgG 13Yrs+Old_Rflx Neg (Neg)
--- NOTE | 2019-06-07 09:56 | Infectious Disease Consult ---
Date of Consultation June 07, 2019 Assessment & Plan (1) Iliopsoas abscess: will need continue abx for previously diagnosed infection. would suggest continue ancef but renally dosed, suggest 500mg IV Q12 until renal recovery. will complete until 07/05 as prevoiusly planned. (2) Epidural abscess: History of Present Illness Attending Physician: Hebert Perla MD pt admitted with increased sob. in ER ct done, found to have b/l pleural effusions. eating breakfast on my exam, denies sob, cough, cp. per chart he was recently hospitalized at [facility] and was diagnosed with MSSA sepsis, psoas muscle abscess and epidural infection. He has been on ancef with tentative stop date of 07/05. unclear if outpatient labs abnormal since d/c. unclear who is following for ID. 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 wbc 5, ESR 44, creat 3.6, appears baseline in mid 1 range. UA negative. has rectal cancer, ct abd shows post op changes. he currently denies any back or flank pain. ID consulted for previously diagnosed infection. Allergies Allergy/AdvReac Type Severity Reaction Status Date / Time Penicillins Allergy Severe anaphylaxis Unverified 06/06/19 13:56 vancomycin Allergy Severe Rash Verified 06/06/19 18:53 chlordiazepoxide AdvReac Unknown nausea/vomi Unverified 06/06/19 13:56 ting tramadol AdvReac Unknown heart Unverified 06/06/19 13:56 racing Home Medications Home Medications Medication Instructions Recorded Confirmed Type aripiprazole 10 mg PO HS 02/21/19 06/06/19 History clorazepate dipotassium 7.5 mg PO QID 02/21/19 06/06/19 History cyclobenzaprine 10 mg PO BID 02/21/19 06/06/19 History divalproex 500 mg PO HS 02/21/19 06/06/19 History duloxetine 60 mg PO QAM 02/21/19 06/06/19 History famotidine 40 mg PO QAM 02/21/19 06/06/19 History gabapentin 200 mg PO TID 02/21/19 06/06/19 History Calcium-Vitamin D3 250-125mg 1 tab PO TID 06/06/19 06/06/19 History Heparin Flush 5ml 5 ml IV Q6H 06/06/19 06/06/19 History atenolol 25 mg PO QAM 06/06/19 06/06/19 History atorvastatin 20 mg PO QAM 06/06/19 06/06/19 History cefazolin in 0.9% sod chloride 2 g IV Q8H 06/06/19 06/06/19 History divalproex [Depakote] 250 mg PO QAM 06/06/19 06/06/19 History quetiapine [Seroquel XR] 300 mg PO HS 06/06/19 06/06/19 History Patient History Medical History Anxiety and depression Chronic thromboembolic pulmonary hypertension Constipation GERD (gastroesophageal reflux disease) High cholesterol History of alcohol abuse History of colon cancer s/p colostomy/reversal, s/p chemo/xrt (years ago) History of kidney stones Obesity Peripheral neuropathy Schizophrenia Surgical History History of colonoscopy History of colostomy History of colostomy reversal History of tonsillectomy Family History Other Family history of alcoholism Social History Preferred Language: French Communication Ability: Effective Communication Ability Comment: short term memory Certified Public Accountant Required: No Beliefs That Will Affect Care: Mandaeism Mandaeism Beliefs: CONFUCIANIST Current Living Situation: Alone Other Information That Helps Us Care for You: No Feels Safe at Home: Yes Safety Concerns: Feels Safe At This Time Smoking Status: Former smoker Tobacco Type: cigarettes ; Cigarettes Per Day: 1 PPD ; Hx Alcohol Use: No (Hx heavy ETOH use (no current ETOH use)) Hx Substance Use: Yes substance use type: other Substance Use Type Other:: "occasional joint"- inhalation; most recent 02/2019-- advised Review of Systems Review of Systems: All systems reviewed & are unremarkable except as noted in HPI & below Physical Exam Constitutional: WD/WN, vitals as above Eyes: PERRL, conjunctivae normal, anicteric sclerae ENMT: external ear and nose normal, oropharynx normal Neck: normal visual inspection Respiratory: normal respiratory effort, lungs clear to auscultation Cardiovascular: RRR, no murmur, no edema Gastrointestinal (Abdomen): normal bowel sounds, soft, nontender, no hepatosplenomegaly Musculoskeletal: no cyanosis or clubbing, extremities motor strength 5/5 Skin: no rashes, warm and dry Psychiatric: A+Ox3, euthymic affect Results & Data Vital Signs (Past 12 Hours) Vital Signs Temp Pulse Pulse Resp BP Pulse Ox 06/07/19 07:30 36.9 C 88 16 140/78 94 06/07/19 04:05 36.8 C 100 H 20 127/80 94 06/07/19 00:08 36.8 C 82 18 126/73 93 06/07/19 00:00 92 H PG Care Time/CCT Total # of Minutes Spent Total Time Spent with Patient: Total time spent is greater than 50% in coordination of care (as documented) at patient's floor/unit and/or counseling patient:
--- NOTE | 2019-06-07 11:11 | XRay Report ---
SINGLE VIEW CHEST CLINICAL HISTORY: Follow-up congestive heart failure. FINDINGS: An AP, portable, upright chest radiograph is compared to study dated 06/06/2019. The examina tion is degraded by portable technique and patient rotation. A left-sided PICC line is unchanged in p osition. The heart is enlarged and there is atherosclerotic calcification of the thoracic ureter. The re is pulmonary vascular congestion and interstitial edema. There are small pleural effusions with bi basilar consolidation. No pneumothorax is seen. The skeletal structures are osteopenic. The bony thor ax is grossly intact. IMPRESSION: 1. Cardiomegaly with evidence of congestive failure and interstitial edema. This has modestly improve d from yesterday. 2. Small pleural effusions and bibasilar consolidation. ACT 112: Negative or not required by law. Electronically signed by: Santiago Richardson M.D. 06/07/2019 11:10 AM
[2019-06-07] MEDS: METOPROLOL TARTRATE 25 MG TAB PO SCH ×2 (12:45→20:47)
--- NOTE | 2019-06-07 15:32 | Electrocardiogram Report ---
Test Reason : Blood Pressure : / mmHG Vent. Rate : 089 BPM Atrial Rate : 089 BPM P-R Int : 142 ms QRS Dur : 084 ms QT Int : 378 ms P-R-T Axes : 039 048 034 degrees QTc Int : 459 ms Sinus rhythm with Premature atrial complexes Otherwise normal ECG No previous ECGs available Confirmed by Omar Tam ([id number]) on 06/07/2019 3:32:17 PM Referred By: [facility] Confirmed By:Omar Tam
--- NOTE | 2019-06-07 15:56 | Nephrology Progress Note ---
Date of Service June 07, 2019 Assessment & Plan (1) GALEN (acute kidney injury): presenting creatinine 3.4 w/ 6.5 gm proteinuria; had been on progressive uptrend since 05/23 [facility] d/c. not oliguric. concern for glomerular process most likely given persistent gross hematuria versus acute interstitial nephritis; less likely ATN or prerenal process -worse creatinine today and lasix on hold -daily bmp -Follow-up complement levels from [facility] which were pending at hospital discharge Moderately low potassium --off lasix now and remains on 20 mill equivalents 3 times daily p.o. (2) CHF (congestive heart failure): no prior history of this based on limited records available -will need careful diuresis: For now recommend strict intake and output; lasix on hold for now -Defer fluid limit for now will order less than 2 g daily sodium diet Follow-up pending echocardiogram -daily standing wt if possible (3) Anemia: presenting hgb 8.8; dropping -no indication for transfusoin; monitor for need -low iron stores noted;, if no bacteremia, consider iron load (4) Hematuria: suspect glomerular hematuria, given nephrotic range proteinuria given volume overload. Differential favors postinfectious glomerulonephritis, acute interstitial nephritis, mesangioproliferative glomerulonephritis. Not likely IgA nephropathy or thin basement membrane disease in this context. not a new issue - this was present last month per records cannot rule out need for renal biopsy though w/ his body habitus he may be a poor candidate -Follow-up renal imaging>> no obstruction; does have stone Obtain serologies sent at [facility] [place] (requested) as well as urine testing and nephro c/s, last nephro note there -Ordered sed rate for the morning as well as serologies; need to ask lab [facility] how to obtain anti GBM Ab; ordered ck ordered 3 separate specimens of urine for urine eosinophils Low threshold for urology consult given smoking and cancer /chemotherapy history -- likelier a glomerular process however Subjective seen on rounds this am; renal function continues to worsen after lasix; he remains on 2L 02NC; he is extremely weak; denies any pain; gross hematuria continues Review of Systems Review of Systems: All systems reviewed & are unremarkable except as noted in HPI & below Physical Exam Constitutional: well developed, well nourished, + obese, cooperative and + edematous; no acute distress Eyes: EOM intact bilaterally ENMT: Ears: no external ear abnormality Nose: no external nose abnormality Mouth: + dry oral mucous membranes Neck: no nuchal rigidity Respiratory: normal respiratory effort Auscultation: + breath sounds absent (BL bases) and + diminished lung sounds Cardiovascular: Rate/Rhythm: regular rate and regular rhythm (occasional skipped beat) Extremities: + edema (2+ to hips) Gastrointestinal (Abdomen): Inspection/Auscultation: normal bowel sounds; abdomen not distended Percussion/Palpation: abdomen soft; abdomen nontender and no guarding Musculoskeletal: Extremities: strength 5/5 throughout Skin: no rashes, warm and dry Neurologic: too weak to roll over for exam; BLUE tremor Psychiatric: Orientation: alert, oriented to person, oriented to place and cooperative Eye Contact: good eye contact Motor Behavior: + psychomotor retardation Affect: + blunted affect Genitourinary: mera w/ gross hematuria Results & Data Vital Signs (Past 12 Hours) Vital Signs Temp Pulse Resp BP Pulse Ox 06/07/19 12:00 36.6 C 89 33 H 135/81 98 06/07/19 07:30 36.9 C 88 16 140/78 94 06/07/19 04:05 36.8 C 100 H 20 127/80 94 Laboratory Results 06/07/19 05:32 06/07/19 05:32 Diagnostic Findings 1. Postsurgical changes involving the bowel with presacral soft tissue thickening, likely treatment-related 2. No evidence of bowel obstruction. No evidence of free air 3. Left-sided nephrolithiasis. No ureteral or bladder calculi identified 4. Moderate bilateral pleural effusions with associated lower lobe compressive atelectatic change 5. Mild generalized body wall edema TTE mild LVH valves ok; EF 65% (1) CHF (congestive heart failure) Heart failure chronicity: unspecified Heart failure type: unspecified Qualified Code(s): I50.9 - Heart failure, unspecified (2) Anemia Anemia type: unspecified type Qualified Code(s): D64.9 - Anemia, unspecified
--- NOTE | 2019-06-07 17:21 | Electrocardiogram Report ---
Test Reason : Blood Pressure : / mmHG Vent. Rate : 098 BPM Atrial Rate : 098 BPM P-R Int : 138 ms QRS Dur : 084 ms QT Int : 370 ms P-R-T Axes : 036 046 042 degrees QTc Int : 472 ms Sinus rhythm with Premature atrial complexes Otherwise normal ECG When compared with ECG of 06-JUN-2019 13:21, (unconfirmed) No significant change was found Confirmed by Robbie Pitts ([id number]) on 06/07/2019 5:21:08 PM Referred By: [facility] Confirmed By:Robbie Pitts
--- NOTE | 2019-06-07 17:40 | Electrocardiogram Report ---
Test Reason : Blood Pressure : / mmHG Vent. Rate : 089 BPM Atrial Rate : 089 BPM P-R Int : 142 ms QRS Dur : 082 ms QT Int : 388 ms P-R-T Axes : 024 033 028 degrees QTc Int : 472 ms Sinus rhythm with Premature atrial complexes Otherwise normal ECG When compared with ECG of 07-JUN-2019 06:23, (unconfirmed) No significant change was found Confirmed by Robbie Pitts ([id number]) on 06/07/2019 5:39:56 PM Referred By: [facility] Confirmed By:Robbie Pitts
--- NOTE | 2019-06-07 18:32 | Hospitalist Progress Note ---
Date of Service June 07, 2019 Assessment & Plan (1) Hypoxia: (2) CHF (congestive heart failure): Present on admission with worsening SOB CXR showed congestive heart failure with small b/l pleural effusion No history of heat failure ProBNP above 14K Was started on Lasix 40mg IV TID that was discontinued due to worsening creatinine Will monitor I/O Nephrology on board for diuretic management ECHO showed left ventricular systolic is normal with ejection fraction 60 to 65%. Circumferential pericardial effusion with moderate organization/fibrinous debris Will consult Cardiology since pt has no hx of CHF (3) GALEN (acute kidney injury): BUN/creatinine 24 and 3.36 on admission Creatinine September/2018 was 0.9 Creatinine at discharge from [facility] 05/21 1.59 Unknown etiology, + hematuria Bladder scan was negative for significant urinary retention Renal ultrasound showed no renal masses identified. 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 Was on IV cefazolin 2 g every 8 hours Sensitivities to be placed in chart -sensitive to doxycycline, daptomycin, Cipro, gentamicin, levofloxacin, linezolid, Bactrim, tigecycline, Vanco Blood cultures are currently pending ID on board recommended to continue Ancef renal dose 500mg IV Q12 until renal recovery as per ID Antibiotics to complete 07/05/2019 (8) Hematuria: Significant hematuria noted grossly with urination UA positive for RBC Renal ultrasound showed no renal stone or hydronephrosis Hgb dropped to 7.6 today Monitor CBC (9) Anemia: Hgb 8.8 on admission Only notable signs of bleeding is hematuria Hgb dropped to 7.6 today Monitor Hgb (10) Schizophrenia: Continue Abilify, Depakote, Seroquel Stable (11) Arrhythmia, atrial: Brief episodes of arrhythmia on tele monitor Atenolol discontinued Started on Metoprolol 25 mg BID TSH within normal limit Continue monitor in tele (12) Anxiety and depression: Continue Cymbalta, clorazepate (13) High cholesterol: Continue statin (14) DVT prophylaxis: SCD/teds due to low hemoglobin and hematuria CODE STATUS FULL CODE Disposition: Continue monitor closely in PCU Subjective Pt was seen and examined Lying in bed with no distress Continue to feel weak Denies any chest pain, palpitation and SOB Physical Exam Physical Exam: General- No acute distress Head- atraumatic Eyes- PERRL, EOMI, ENT- oropharynx clear Neck- supple, no JVD Lungs- diminished BS Heart- regular rhythm; no murmur Abdomen- normal bowel sounds, soft, nontender Extremities- no calf tenderness, +edema Neuro- alert, oriented, PERRL, EOMI; no facial palsy; no dysarthria Skin- warm & dry Results & Data Vital Signs (Past 12 Hours) Vital Signs Temp Pulse Resp BP Pulse Ox 06/07/19 15:33 36.7 C 92 H 21 159/83 H 95 06/07/19 12:00 36.6 C 89 33 H 135/81 98 06/07/19 07:30 36.9 C 88 16 140/78 94 (1) CHF (congestive heart failure) Heart failure chronicity: unspecified Heart failure type: unspecified Qualified Code(s): I50.9 - Heart failure, unspecified (2) Anemia Anemia type: unspecified type Qualified Code(s): D64.9 - Anemia, unspecified
[2019-06-07] MEDS ORDERED: CEFAZOLIN IV SCH (19:00)
[2019-06-07] MEDS: CEFAZOLIN 500 MG in SYRINGE 0 ML IV SCH (19:39)
[2019-06-07] MEDS: QUETIAPINE FUMARATE 150 MG TABCR PO SCH (20:46)
[2019-06-07] MEDS: DIVALPROEX DELAY RELEASE 500 MG TAB PO SCH (20:46)
[2019-06-07] MEDS: ARIPiprazole 10 MG TAB PO SCH (20:47)
[2019-06-08] MEDS: CLORAZEPATE DIPOTASSIUM 3.75 MG TAB PO SCH ×4 (05:53→23:56)
[2019-06-08 06:29] LABS: Hematocrit (blood only) 23.7 % (42-52); Hemoglobin 7.6 g/dL (14.0-18.0); Mean Corpuscular Hemoglobin 30.3 pg (25-34); Mean Corpuscular Hgb Conc 32.1 g/dL (32-36); Mean Corpuscular Volume 94.4 fL (80-100); Mean Platelet Volume 8.8 fL (7.4-10.4); Platelet Count 179 K/uL (130-400); RDW Coefficient of Variation 13.7 % (11.5-14.5); Red Blood Count 2.51 M/uL (4.7-6.1); White Blood Count 5.21 K/uL (4.8-10.8)
[2019-06-08 06:57] LABS: BUN Creatinine Ratio 8.3 (10-20); Calcium 7.8 mg/dl (8.5-10.1); Creatinine Clr Calc Pharmacy 20.8 ml/min; Est GFR (African American) 17.3; Est GFR (Non-African American) 14.9; Potassium 3.2 mmol/L (3.5-5.1)
[2019-06-08] MEDS: POTASSIUM CHLORIDE 20 MEQ TABCR PO SCH ×3 (07:47→20:27)
[2019-06-08] MEDS: CEFAZOLIN 500 MG in SYRINGE 0 ML IV SCH ×2 (07:47→17:24)
[2019-06-08] MEDS: CALCIUM 600MG + VIT D 400 IU TAB PO SCH ×3 (07:48→20:26)
[2019-06-08] MEDS: ATORVASTATIN 20 MG TAB PO SCH (07:48)
[2019-06-08] MEDS: FAMOTIDINE 40 MG TABLET PO SCH (07:48)
[2019-06-08] MEDS: METOPROLOL TARTRATE 25 MG TAB PO SCH ×3 (07:48→23:51)
[2019-06-08] MEDS: DULOXETINE HCL 60 MG CAP PO SCH (07:48)
[2019-06-08] MEDS: DIVALPROEX DELAY RELEASE 250 MG TABEC PO SCH (07:48)
--- NOTE | 2019-06-08 11:53 | Electrocardiogram Report ---
Test Reason : Blood Pressure : / mmHG Vent. Rate : 095 BPM Atrial Rate : 095 BPM P-R Int : 144 ms QRS Dur : 086 ms QT Int : 368 ms P-R-T Axes : 027 037 023 degrees QTc Int : 462 ms Sinus rhythm with Premature atrial complexes Otherwise normal ECG When compared with ECG of 07-JUN-2019 11:02, No significant change was found Confirmed by Omar Tam ([id number]) on 06/08/2019 11:53:06 AM Referred By: [facility] Confirmed By:Omar Tam
--- NOTE | 2019-06-08 13:02 | Cardiology Consultation ---
Date of Consultation June 08, 2019 Assessment & Plan (1) Volume overload: (2) PSVT (paroxysmal supraventricular tachycardia): (3) Chronic thromboembolic pulmonary hypertension: (4) Iliopsoas abscess: (5) Epidural abscess: (6) GALEN (acute kidney injury): (7) Proteinuria: (8) Hematuria: (9) Hypoalbuminemia: (10) Anemia: Complex 64-year-old patient admitted with change in mental status, volume overload, iliopsoas and epidural abscess. Resting 2D transthoracic echocardiogram demonstrates preserved LV systolic function, normal diastolic function, and no significant valvular heart disease. Volume overload secondary to hypoalbuminemia with third spacing of fluid in the setting of acute kidney injury, hematuria, and proteinuria. Diuretics currently on hold as per nephrology. Continue to monitor. Consider addition of Lasix tomorrow in collaboration with nephrology. In regards to patient's intermittent paroxysmal supraventricular tachycardia, recommend titration of metoprolol to 25 mg every 6 hours. TSH within normal limits. Continue telemetry monitoring. Maintain serum potassium greater than 4.0, and serum magnesium greater than 2.0. Potassium supplementation ordered. Recommend transfusion if hemoglobin falls below 7.0 gm/dL. History of Present Illness Reason for Consultation: CHF Requesting Physician: Dr. Perla Attending Physician: Hebert Perla MD History of Present Illness 64-year-old patient admitted secondary to altered mental status and hypoxia. X- ray noting pulmonary edema with pleural effusions. Patient diagnosed with congestive heart failure. Noted to be in acute renal failure with significant proteinuria, hematuria, and hypoalbuminemia. Nephrology following. Resting 2D transthoracic echocardiogram performed 06/07/2019 demonstrates preserved LV systolic function without significant valvular pathology. Normal diastolic function. Patient currently resting comfortably. Notes dyspnea with minimal exertion. Reports shortness of breath, edema, and hematuria for "20 years". He is a poor historian. Denies chest discomfort. Notes palpitations intermittently over the past 4 weeks. Diuretic therapy placed on hold by nephrology due to elevated creatinine. Telemetry demonstrates intermittent salvos of supraventricular tachycardia. ECG demonstrates sinus rhythm with premature atrial complexes. Atenolol discontinued by internal medicine with transition to metoprolol 25 mg twice daily. Allergies Allergy/AdvReac Type Severity Reaction Status Date / Time Penicillins Allergy Severe anaphylaxis Unverified 06/06/19 13:56 vancomycin Allergy Severe Rash Verified 06/06/19 18:53 chlordiazepoxide AdvReac Unknown nausea/vomi Unverified 06/06/19 13:56 ting tramadol AdvReac Unknown heart Unverified 06/06/19 13:56 racing Home Medications Home Medications Medication Instructions Recorded Confirmed Type aripiprazole 10 mg PO HS 02/21/19 06/06/19 History clorazepate dipotassium 7.5 mg PO QID 02/21/19 06/06/19 History cyclobenzaprine 10 mg PO BID 02/21/19 06/06/19 History divalproex 500 mg PO HS 02/21/19 06/06/19 History duloxetine 60 mg PO QAM 02/21/19 06/06/19 History famotidine 40 mg PO QAM 02/21/19 06/06/19 History gabapentin 200 mg PO TID 02/21/19 06/06/19 History Calcium-Vitamin D3 250-125mg 1 tab PO TID 06/06/19 06/06/19 History Heparin Flush 5ml 5 ml IV Q6H 06/06/19 06/06/19 History atenolol 25 mg PO QAM 06/06/19 06/06/19 History atorvastatin 20 mg PO QAM 06/06/19 06/06/19 History cefazolin in 0.9% sod chloride 2 g IV Q8H 06/06/19 06/06/19 History divalproex [Depakote] 250 mg PO QAM 06/06/19 06/06/19 History quetiapine [Seroquel XR] 300 mg PO HS 06/06/19 06/06/19 History Patient History Medical History Anxiety and depression Chronic thromboembolic pulmonary hypertension Constipation GERD (gastroesophageal reflux disease) High cholesterol History of alcohol abuse History of colon cancer s/p colostomy/reversal, s/p chemo/xrt (years ago) History of kidney stones Obesity Peripheral neuropathy Schizophrenia Surgical History History of colonoscopy History of colostomy History of colostomy reversal History of tonsillectomy Family History Other Family history of alcoholism Social History Preferred Language: Divehi Communication Ability: Impaired Communication Ability Comment: short term memory Data Modeling Specialist Required: No Beliefs That Will Affect Care: Congregation Congregation Beliefs: ZOROASTRIAN Current Living Situation: Alone Other Information That Helps Us Care for You: No Feels Safe at Home: Yes Safety Concerns: Feels Safe At This Time Smoking Status: Former smoker Tobacco Type: cigarettes ; Cigarettes Per Day: 1 PPD ; Hx Alcohol Use: No (Hx heavy ETOH use (no current ETOH use)) Hx Substance Use: Yes substance use type: other Substance Use Type Other:: "occasional joint"- inhalation; most recent 02/2019-- advised Review of Systems Review of Systems: All systems reviewed & are unremarkable except as noted in HPI & below Physical Exam Constitutional: well developed, well nourished and + ill appearing; no acute distress Respiratory: Auscultation: + diminished lung sounds (Diminished breath sounds at the bases, otherwise, no rales, rhonchi, or wheeze) Cardiovascular: Rate/Rhythm: regular rate, regular rhythm and + tachycardic Heart Sounds: normal S1 and normal S2; no murmur and no cardiac rub Vessels: no JVD Extremities: + pedal edema (2+ bilateral pedal and ankle edema); no calf tenderness Gastrointestinal (Abdomen): Inspection/Auscultation: abdomen normal to inspection and normal bowel sounds; abdomen not distended Percussion/Palpation: abdomen soft; abdomen nontender, no guarding and abdomen not rigid Musculoskeletal: no cyanosis or clubbing, extremities motor strength 5/5 Neurologic: CN's II-XI intact bilaterally and moves all extremities; no focal motor deficits Results & Data Vital Signs (Past 12 Hours) Vital Signs Temp Pulse Resp BP Pulse Ox 06/08/19 11:40 36.8 C 90 18 142/91 H 97 06/08/19 08:12 37.0 C 89 18 151/70 H 96 06/08/19 04:00 36.7 C 100 H 18 150/81 H 91 (1) Volume overload Hypervolemia type: unspecified Qualified Code(s): E87.70 - Fluid overload, unspecified (2) Proteinuria Proteinuria type: persistent Qualified Code(s): R80.1 - Persistent proteinuria, unspecified (3) Hematuria Hematuria type: gross Qualified Code(s): R31.0 - Gross hematuria
[2019-06-08] MEDS ORDERED: CEFAZOLIN 500 MG in DEXTROSE 5% 50 ML IV SCH (19:00)
--- NOTE | 2019-06-08 19:03 | Hospitalist Progress Note ---
Date of Service June 08, 2019 Assessment & Plan (1) CHF (congestive heart failure): (2) Hypoxia: Present on admission with worsening SOB CXR showed congestive heart failure with small b/l pleural effusion No history of heat failure ProBNP above 14K Was started on Lasix 40mg IV TID that was discontinued due to worsening creatinine Nephrology on board for diuretic management ECHO showed left ventricular systolic is normal with ejection fraction 60 to 65%. Circumferential pericardial effusion with moderate organization/fibrinous debris cardiology on board Volume overload secondary to hypoalbuminemia with third spacing of fluid in the setting of acute kidney injury and proteinuria as per cardiology Plan to resume lasix if creatinine improves tomorrow Monitor I/O (3) GALEN (acute kidney injury): BUN/creatinine 24 and 3.36 on admission Creatinine September/2018 was 0.9 Creatinine at discharge from [facility] 05/21 1.59 Unknown etiology, + hematuria Bladder scan was negative for significant urinary retention Renal ultrasound showed no renal masses identified. No evidence of hydronephrosis creatinine worsening to 3.9 today Nephro on board Vasculitis work up such as complement pending Continue to hold lasix Continue monitor BMP (4) Electrolyte abnormality: K 3.2 today Continue K supplement Monitor BMP (5) Metabolic encephalopathy: Possible related to acute illness No focal neuro deficit on exam Continue monitor closely Consider neuro consult if no improvement (6) Epidural abscess: (7) Iliopsoas abscess: MSSA bacteremia Was on IV cefazolin 2 g every 8 hours Sensitivities to be placed in chart -sensitive to doxycycline, daptomycin, Cipro, gentamicin, levofloxacin, linezolid, Bactrim, tigecycline, Vanco Blood cultures are currently pending ID on board recommended to continue Ancef renal dose 500mg IV Q12 until renal recovery as per ID Antibiotics to complete 07/05/2019 (8) Hematuria: Significant hematuria noted grossly with urination UA positive for RBC Renal ultrasound showed no renal stone or hydronephrosis Hgb dropped to 7.6 today Monitor CBC (9) Anemia: Hgb 8.8 on admission Only notable signs of bleeding is hematuria Hgb dropped to 7.6 today Continue monitor h/h, will transfuse if hgb drops below 7 (10) Schizophrenia: Continue Abilify, Depakote, Seroquel (11) Arrhythmia, atrial: Brief episodes of arrhythmia on tele monitor Atenolol discontinued Continue Metoprolol 25 mg BID TSH within normal limit Cardiology on board (12) Anxiety and depression: Continue Cymbalta, clorazepate (13) High cholesterol: Continue statin (14) DVT prophylaxis: SCD/teds due to low hemoglobin and hematuria CODE STATUS FULL CODE Disposition: Continue monitor closely in PCU Subjective Pt was seen and examined Lying in bed with no distress Pt feels very weak and tired Daughter at bedside and provided update daughter said that her dad has some confusion at baseline but seems to worsening Denies any chest pain, palpitation and fever Physical Exam Physical Exam: General- No acute distress Head- atraumatic Eyes- PERRL, EOMI, ENT- oropharynx clear Neck- supple, no JVD Lungs- diminished BS Heart- regular rhythm; no murmur Abdomen- normal bowel sounds, soft, nontender Extremities- no calf tenderness, +edema Neuro- alert, oriented, PERRL, EOMI; no facial palsy; no dysarthria Skin- warm & dry Results & Data Vital Signs (Past 12 Hours) Vital Signs Temp Pulse Pulse Resp BP Pulse Ox 06/08/19 15:15 36.7 C 85 20 146/86 H 99 06/08/19 14:52 84 06/08/19 11:40 36.8 C 90 18 142/91 H 97 06/08/19 08:12 37.0 C 89 18 151/70 H 96 (1) CHF (congestive heart failure) Heart failure chronicity: unspecified Heart failure type: unspecified Qualified Code(s): I50.9 - Heart failure, unspecified (2) Anemia Anemia type: unspecified type Qualified Code(s): D64.9 - Anemia, unspecified
--- NOTE | 2019-06-08 19:45 | Nephrology Progress Note ---
Date of Service June 08, 2019 Assessment & Plan (1) GLAEN (acute kidney injury): presenting creatinine 3.4 w/ 6.5 gm proteinuria; had been on progressive uptrend since 05/23 [facility] d/c. not oliguric. concern for glomerular process most likely given persistent gross hematuria versus acute interstitial nephritis; less likely ATN or prerenal process. 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 Treatment for AIN or postinfectious GN is supportive. Would consider biopsy only if acutely worsening creatinine and on verge of needing dialysis. Biopsy unlikely to knife changer, though would be helpful for diagnosis. At this time biopsy deferred Further serologies to help evaluate for postinfectious GN ordered for a.m. labs including anti-streptokinase antistreptolysin anti-DNAsE B, anti-C1q, CH 50; multiple other serologies remain in process -Slightly worse creatinine today at 3.9 and lasix to remain on hold -daily bmp -Follow-up complement levels from [facility] which were pending at hospital discharge Moderately low potassium --off lasix now and remains on 20 mill equivalents 3 times daily p.o. (2) CHF (congestive heart failure): no prior history of this based on limited records available; normal systolic function on echocardiogram; heart failure and volume overload likely relates to renal process -will need careful diuresis: For now recommend strict intake and output; lasix on hold for now -Defer fluid limit for now will order less than 2 g daily sodium diet -daily standing wt if possible (3) Anemia: presenting hgb 8.8; dropping -no indication for transfusion; monitor for need ->>>low iron stores noted; if no bacteremia, consider iron load (4) Hematuria: suspect glomerular hematuria, given nephrotic range proteinuria given volume overload. Differential favors postinfectious glomerulonephritis, acute interstitial nephritis, less likely mesangioproliferative glomerulonephritis. Not likely IgA nephropathy or thin basement membrane disease in this context, though these are really quite low on the differential. not a new issue - this was present last month per records cannot rule out need for renal biopsy though w/ his body habitus he may be a poor candidate. Sed rate 44, CK 21 -Follow-up renal imaging>> no obstruction; does have stone Obtain serologies sent at [facility] [place] (requested) as well as urine testing and nephro c/s, last nephro note there -need to ask lab [facility]bra how to obtain anti GBM Ab ordered 3 separate specimens of urine for urine eosinophils-only 1 done to date we will reorder Low threshold for urology consult given smoking and cancer /chemotherapy histo ry -- likelier a glomerular process however Subjective Denies shortness of breath. Remains exceptionally weak. Ongoing gross hematuria. No clots in the catheter. Patient requests I speak with his daughter regarding his condition Review of Systems Review of Systems: All systems reviewed & are unremarkable except as noted in HPI & below Physical Exam Constitutional: well developed and well nourished On oxygen nasal cannula 2 L, alert and oriented x3 with marked psychomotor slowing and generalized weak ness, obese Eyes: EOM intact bilaterally ENMT: Ears: no external ear abnormality Nose: no external nose abnormality Mouth: + dry oral mucous membranes Neck: no nuchal rigidity Respiratory: normal respiratory effort Auscultation: lungs clear to auscultation bilaterally and + diminished lung sounds Cardiovascular: Rate/Rhythm: regular rate (Heart sounds distant) and regular rhythm Extremities: + edema (Trace bilateral extremity and teds) Gastrointestinal (Abdomen): Inspection/Auscultation: normal bowel sounds Pe rcussion/Palpation: abdomen soft; abdomen nontender Musculoskeletal: Resting tremors bilateral upper extremities/spastic weakness, generalized weakness: Unable lean forward for exam without 2 person assist; unable to sit on the side of the bed Skin: no rashes, warm and dry Neurologic: enriquez, fluent though delayed speech, resting upper extremity tremor Psychiatric: Orientation: alert, oriented to person and oriented to place Motor Behavior: + psychomotor retardation Affect: + flat affect Genitourinary: Byrne with light red urine and little sediment no clot Results & Data Vital Signs (Past 12 Hours) Vital Signs Temp Pulse Pulse Resp BP Pulse Ox 06/08/19 19:29 36.9 C 83 16 149/89 H 98 06/08/19 15:15 36.7 C 85 20 146/86 H 99 06/08/19 14:52 84 06/08/19 11:40 36.8 C 90 18 142/91 H 97 06/08/19 08:12 37.0 C 89 18 151/70 H 96 Laboratory Results 06/08/19 05:46 06/08/19 05:46 (1) CHF (congestive heart failure) Heart failure chronicity: unspecified Heart failure type: unspecified Qualified Code(s): I50.9 - Heart failure, unspecified (2) Anemia Anemia type: unspecified type Qualified Code(s): D64.9 - Anemia, unspecified
[2019-06-08] MEDS: ARIPiprazole 10 MG TAB PO SCH (20:26)
[2019-06-08] MEDS: DIVALPROEX DELAY RELEASE 500 MG TAB PO SCH (20:26)
[2019-06-08] MEDS: QUETIAPINE FUMARATE 150 MG TABCR PO SCH (20:27)
[2019-06-08] MEDS ORDERED: POTASSIUM CHLORIDE 20 MEQ TABCR PO ONE (20:28)
[2019-06-09] MEDS: CLORAZEPATE DIPOTASSIUM 3.75 MG TAB PO SCH ×3 (05:46→17:35)
[2019-06-09] MEDS: METOPROLOL TARTRATE 25 MG TAB PO SCH ×3 (05:46→17:36)
[2019-06-09] MEDS: CEFAZOLIN 500 MG in SYRINGE 0 ML IV SCH ×2 (06:29→17:35)
[2019-06-09] MEDS: ATORVASTATIN 20 MG TAB PO SCH (07:50)
[2019-06-09] MEDS: FAMOTIDINE 40 MG TABLET PO SCH (07:50)
[2019-06-09] MEDS: POTASSIUM CHLORIDE 20 MEQ TABCR PO SCH ×2 (07:50→14:15)
[2019-06-09] MEDS: DULOXETINE HCL 60 MG CAP PO SCH (07:50)
[2019-06-09] MEDS: DIVALPROEX DELAY RELEASE 250 MG TABEC PO SCH (07:50)
[2019-06-09] MEDS: CALCIUM 600MG + VIT D 400 IU TAB PO SCH ×3 (07:51→20:03)
[2019-06-09 10:59] LABS: Hematocrit (blood only) 25.9 % (42-52); Hemoglobin 8.3 g/dL (14.0-18.0); Mean Corpuscular Hemoglobin 30.4 pg (25-34); Mean Corpuscular Volume 94.9 fL (80-100); Platelet Count 167 K/uL (130-400); RDW Coefficient of Variation 13.8 % (11.5-14.5); RDW Standard Deviation 47.8 fL (36.4-46.3); Red Blood Count 2.73 M/uL (4.7-6.1); White Blood Count 4.02 K/uL (4.8-10.8)
[2019-06-09 11:19] LABS: BUN Creatinine Ratio 7.8 (10-20); Creatinine Clr Calc Pharmacy 18.3 ml/min; Est GFR (African American) 15.3; Est GFR (Non-African American) 13.2; Potassium 4.4 mmol/L (3.5-5.1)
--- NOTE | 2019-06-09 16:51 | Hospitalist Progress Note ---
Date of Service June 09, 2019 Assessment & Plan (1) CHF (congestive heart failure): (2) Hypoxia: Present on admission with worsening SOB CXR showed congestive heart failure with small b/l pleural effusion No history of heat failure ProBNP above 14K Was started on Lasix 40mg IV TID that was discontinued due to worsening creatinine Nephrology on board for diuretic management ECHO showed left ventricular systolic is normal with ejection fraction 60 to 65%. Circumferential pericardial effusion with moderate organization/fibrinous debris cardiology on board Volume overload secondary to hypoalbuminemia with third spacing of fluid in the setting of acute kidney injury and proteinuria as per cardiology Plan to resume lasix when creatinine improves Continue monitor I/O (3) GALEN (acute kidney injury): BUN/creatinine 24 and 3.36 on admission Creatinine September/2018 was 0.9 Creatinine at discharge from [facility] 05/21 1.59 Unknown etiology, + hematuria Bladder scan was negative for significant urinary retention Renal ultrasound showed no renal masses identified. No evidence of hydronephrosis creatinine worsening to 4.3 today Nephro on board Vasculitis work up such as complement pending Will try to get complement levels from [facility] which were pending at hospital discharge Continue to hold lasix Continue monitor BMP (4) Electrolyte abnormality: K 4.4 today On Potassium 40mg TID Will check BMP later and if K increase will hold K supplement (5) Metabolic encephalopathy: Possible related to acute illness No focal neuro deficit on exam Continue monitor closely Consider neuro consult if no improvement (6) Epidural abscess: (7) Iliopsoas abscess: MSSA bacteremia Was on IV cefazolin 2 g every 8 hours Sensitivities to be placed in chart -sensitive to doxycycline, daptomycin, Cipro, gentamicin, levofloxacin, linezolid, Bactrim, tigecycline, Vanco Blood cultures are currently pending ID on board recommended to continue Ancef renal dose 500mg IV Q12 until renal recovery as per ID Antibiotics to complete 07/05/2019 (8) Hematuria: Significant hematuria noted grossly with urination UA positive for RBC Renal ultrasound showed no renal stone or hydronephrosis Hgb increased to 8.3 today Monitor CBC (9) Hypertension: BP fluctuates If BP remains elevating, will add low dose amlodipine 2.5 mg Continue monitor BP (10) Anemia: Hgb 8.8 on admission Only notable signs of bleeding is hematuria Hgb increased from 7.6 to 8.3 toda Continue monitor h/h, will transfuse if hgb drops below 7 (11) Schizophrenia: Continue Abilify, Depakote, Seroquel (12) Arrhythmia, atrial: Brief episodes of arrhythmia on tele monitor Atenolol discontinued Continue Metoprolol 25 mg BID TSH within normal limit Cardiology on board (13) Anxiety and depression: Continue Cymbalta, clorazepate (14) High cholesterol: Continue statin (15) DVT prophylaxis: SCD/teds due to low hemoglobin and hematuria CODE STATUS FULL CODE Disposition: Continue monitor closely in PCU Subjective Pt was seen and examined Lying in bed with no distress Pt seems a little more awake today Continue to feel weak, but was able to pull himself up Denies any chest pain, palpitation and SOB Physical Exam Physical Exam: General- No acute distress Head- atraumatic Eyes- PERRL, EOMI, ENT- oropharynx clear Neck- supple, no JVD Lungs- diminished BS Heart- regular rhythm; no murmur Abdomen- normal bowel sounds, soft, nontender Extremities- no calf tenderness, +edema Neuro- alert, oriented, PERRL, EOMI; no facial palsy; no dysarthria Skin- warm & dry Results & Data Vital Signs (Past 12 Hours) Vital Signs Temp Pulse Pulse Resp BP Pulse Ox 06/09/19 15:07 36.7 C 92 H 18 170/86 H 96 06/09/19 11:16 36.7 C 87 18 137/83 97 06/09/19 09:31 93 06/09/19 09:30 85 L 06/09/19 08:00 83 06/09/19 06:15 36.7 C 84 20 145/85 H 98 (1) CHF (congestive heart failure) Heart failure chronicity: unspecified Heart failure type: unspecified Qualified Code(s): I50.9 - Heart failure, unspecified (2) Anemia Anemia type: unspecified type Qualified Code(s): D64.9 - Anemia, unspecified
[2019-06-09] MEDS: ARIPiprazole 10 MG TAB PO SCH (20:02)
[2019-06-09] MEDS: QUETIAPINE FUMARATE 150 MG TABCR PO SCH (20:03)
[2019-06-09] MEDS: DIVALPROEX DELAY RELEASE 500 MG TAB PO SCH (20:03)
[2019-06-09 20:35] LABS: Calcium 8.2 mg/dl (8.5-10.1); Creatinine Clr Calc Pharmacy 18.1 ml/min; Est GFR (African American) 15.1; Potassium 4.4 mmol/L (3.5-5.1)
[2019-06-10] MEDS: CLORAZEPATE DIPOTASSIUM 3.75 MG TAB PO SCH ×5 (00:07→23:38)
[2019-06-10] MEDS: METOPROLOL TARTRATE 25 MG TAB PO SCH ×5 (00:07→23:38)
[2019-06-10] MEDS: CEFAZOLIN 500 MG in SYRINGE 0 ML IV SCH ×2 (05:14→19:57)
[2019-06-10 06:11] LABS: Hemoglobin 8.2 g/dL (14.0-18.0); Mean Corpuscular Hgb Conc 31.5 g/dL (32-36); Mean Corpuscular Volume 95.2 fL (80-100); Mean Platelet Volume 9.4 fL (7.4-10.4); Platelet Count 189 K/uL (130-400); RDW Coefficient of Variation 13.8 % (11.5-14.5); RDW Standard Deviation 47.6 fL (36.4-46.3); Red Blood Count 2.73 M/uL (4.7-6.1); White Blood Count 4.32 K/uL (4.8-10.8)
[2019-06-10 06:51] LABS: BUN Creatinine Ratio 7.6 (10-20); Calcium 8.6 mg/dl (8.5-10.1); Creatinine Clr Calc Pharmacy 17.2 ml/min; Est GFR (African American) 14.3; Est GFR (Non-African American) 12.3; Potassium 4.1 mmol/L (3.5-5.1)
[2019-06-10] MEDS: ATORVASTATIN 20 MG TAB PO SCH (08:02)
[2019-06-10] MEDS: CALCIUM 600MG + VIT D 400 IU TAB PO SCH ×3 (08:02→20:24)
[2019-06-10] MEDS: DIVALPROEX DELAY RELEASE 250 MG TABEC PO SCH (08:02)
[2019-06-10] MEDS: FAMOTIDINE 40 MG TABLET PO SCH (08:02)
[2019-06-10] MEDS: DULOXETINE HCL 60 MG CAP PO SCH (08:02)
--- NOTE | 2019-06-10 13:30 | Hospitalist Progress Note ---
Date of Service June 10, 2019 Assessment & Plan (1) Volume overload: (2) Hypoxia: Present on admission with worsening SOB CXR showed congestive heart failure with small b/l pleural effusion No history of heat failure ProBNP above 14K Was started on Lasix 40mg IV TID that was discontinued due to worsening creatinine Nephrology on board for diuretic management ECHO showed left ventricular systolic is normal with ejection fraction 60 to 65%. Circumferential pericardial effusion with moderate organization/fibrinous debris cardiology on board Volume overload secondary to hypoalbuminemia with third spacing of fluid in the setting of acute kidney injury and proteinuria as per cardiology Plan to resume lasix when creatinine improves Continue monitor I/O (3) GALEN (acute kidney injury): BUN/creatinine 24 and 3.36 on admission Creatinine September/2018 was 0.9 Creatinine at discharge from [facility] 05/21 1.59 Unknown etiology, + hematuria Bladder scan was negative for significant urinary retention Renal ultrasound showed no renal masses identified. No evidence of hydronephrosis creatinine worsening to 4.6 today Nephro on board Case discussed with nephrology and suspect etiology might be glomerulonephritis Vasculitis work up such as complement pending Will try to get complement levels from [facility] which were pending at hospital discharge Might need to get biopsy done, but due to recent abscess and on IV abx, will need to hold it Continue to hold lasix Continue monitor BMP (4) Electrolyte abnormality: K 4.4 today On Potassium 40mg TID, that was placed on hold Continue monitor BMP (5) Metabolic encephalopathy: Possible related to acute illness No focal neuro deficit on exam Continue monitor closely Consider neuro consult if no improvement (6) Epidural abscess: (7) Iliopsoas abscess: MSSA bacteremia Was on IV cefazolin 2 g every 8 hours Sensitivities to be placed in chart -sensitive to doxycycline, daptomycin, Cipro, gentamicin, levofloxacin, linezolid, Bactrim, tigecycline, Vanco Blood cultures are currently pending ID on board recommended to continue Ancef renal dose 500mg IV Q12 until renal recovery as per ID Antibiotics to complete 07/05/2019 (8) Hematuria: Significant hematuria noted grossly with urination UA positive for RBC Renal ultrasound showed no renal stone or hydronephrosis Hgb increased to 8.2 today Consider Urology consult once stable (9) Hypertension: BP fluctuates If BP remains elevating, will add low dose amlodipine 2.5 mg Continue monitor BP (10) Anemia: Hgb 8.8 on admission Only notable signs of bleeding is hematuria Hgb increased from 7.6 to 8.3 toda Continue monitor h/h, will transfuse if hgb drops below 7 (11) Schizophrenia: Continue Abilify, Depakote, Seroquel (12) Arrhythmia, atrial: Brief episodes of arrhythmia on tele monitor Atenolol discontinued Continue Metoprolol 25 mg BID TSH within normal limit Cardiology on board (13) Anxiety and depression: Continue Cymbalta, clorazepate (14) High cholesterol: Continue statin (15) DVT prophylaxis: SCD/teds due to low hemoglobin and hematuria CODE STATUS FULL CODE Disposition: Continue monitor closely in PCU Subjective Pt was seen and examined Lying in bed with no distress He said that his strength seems to improve a little Continue to have hematuria Denies any chest pain, palpitation and SOB Physical Exam Physical Exam: General- No acute distress Head- atraumatic Eyes- PERRL, EOMI, ENT- oropharynx clear Neck- supple, no JVD Lungs- diminished BS Heart- regular rhythm; no murmur Abdomen- normal bowel sounds, soft, nontender Extremities- no calf tenderness, +edema Neuro- alert, oriented, PERRL, EOMI; no facial palsy; no dysarthria Skin- warm & dry Results & Data Vital Signs (Past 12 Hours) Vital Signs Temp Pulse Pulse Resp BP Pulse Ox 06/10/19 11:51 36.7 C 90 18 131/78 98 06/10/19 08:00 90 06/10/19 07:08 36.7 C 96 H 19 161/93 H 91 06/10/19 03:09 36.6 C 91 H 16 144/88 H 95 (1) Anemia Anemia type: unspecified type Qualified Code(s): D64.9 - Anemia, unspecified (2) Volume overload Hypervolemia type: unspecified Qualified Code(s): E87.70 - Fluid overload, unspecified
[2019-06-10] MEDS: ARIPiprazole 10 MG TAB PO SCH (20:24)
[2019-06-10] MEDS: DIVALPROEX DELAY RELEASE 500 MG TAB PO SCH (20:25)
[2019-06-10] MEDS: QUETIAPINE FUMARATE 150 MG TABCR PO SCH (20:25)
[2019-06-11 05:56] LABS: Hematocrit (blood only) 25.5 % (42-52); Mean Corpuscular Hemoglobin 30.1 pg (25-34); Mean Corpuscular Hgb Conc 31.4 g/dL (32-36); Mean Corpuscular Volume 95.9 fL (80-100); Mean Platelet Volume 9.1 fL (7.4-10.4); Platelet Count 183 K/uL (130-400); RDW Coefficient of Variation 13.7 % (11.5-14.5); RDW Standard Deviation 47.7 fL (36.4-46.3); Red Blood Count 2.66 M/uL (4.7-6.1); White Blood Count 4.57 K/uL (4.8-10.8)
[2019-06-11] MEDS: CLORAZEPATE DIPOTASSIUM 3.75 MG TAB PO SCH ×2 (06:08→14:00)
[2019-06-11] MEDS: METOPROLOL TARTRATE 25 MG TAB PO SCH ×2 (06:08→13:56)
[2019-06-11 06:29] LABS: BUN Creatinine Ratio 7.9 (10-20); Calcium 8.4 mg/dl (8.5-10.1); Creatinine Clr Calc Pharmacy 16.4 ml/min; Est GFR (African American) 13.6; Est GFR (Non-African American) 11.7; Potassium 4.1 mmol/L (3.5-5.1)
[2019-06-11] MEDS: CEFAZOLIN 500 MG in SYRINGE 0 ML IV SCH (07:40)
[2019-06-11] MEDS: DIVALPROEX DELAY RELEASE 250 MG TABEC PO SCH (07:41)
[2019-06-11] MEDS: FAMOTIDINE 40 MG TABLET PO SCH (07:41)
[2019-06-11] MEDS: DULOXETINE HCL 60 MG CAP PO SCH (07:41)
[2019-06-11] MEDS: CALCIUM 600MG + VIT D 400 IU TAB PO SCH ×2 (07:41→14:00)
[2019-06-11] MEDS: ATORVASTATIN 20 MG TAB PO SCH (07:41)
--- NOTE | 2019-06-11 09:37 | Nephrology Progress Note ---
Date of Service June 11, 2019 Assessment & Plan (1) GALEN (acute kidney injury): presenting creatinine 3.4 w/ 6.5 gm proteinuria; had been on progressive uptrend since 05/23 [facility] d/c. not oliguric. Patient had a creatinine of 0.68 on 05/08/2019 at [facility]. Renal function started to progressively increase during hospitalization at [facility] where patient was treated for sepsis. Urine sediment reviewed by myself today shows gross hematuria with multiple crenated red blood cells and acanthocytes. This is highly suggestive of acute glomerulonephritis. C3 and C4 were normal on 05/22/2019 at [facility] and serologies are pending. Creatinine uptrending today at 4.8 from 4.6 yesterday -Patient needs a renal biopsy to establish diagnosis. I discussed case in detail with the daughter Janet who is agreeable with the plan. We do not have interventional radiology at this hospital. Patient will need to be transferred to [facility] or [facility] and renal biopsy by interventional radiology. -daily bmp (2) CHF (congestive heart failure): no prior history of this based on limited records available; normal systolic function on echocardiogram; heart failure and volume overload likely relates to renal process -Patient diuresed recently; lasix on hold for now -ess than 2 g daily sodium diet -daily standing wt if possible (3) Anemia: presenting hgb 8.8; dropping to 8 today -no indication for transfusion; monitor for need ->>>low iron stores noted; if no bacteremia, consider iron load (4) Hematuria: suspect glomerular hematuria, given nephrotic range proteinuria given volume overload. Differential favors postinfectious glomerulonephritis, acute interstitial nephritis, less likely mesangioproliferative glomerulonephritis. Not likely IgA nephropathy or thin basement membrane disease in this context, though these are really quite low on the differential. not a new issue - this was present last month per records Urine sediment showing acanthocytes likely glomerulonephritis -We will obtain renal biopsy as discussed above. Subjective Patient reports feeling fine. He denies any shortness of breath. Byrne catheter draining bloody urine. Spoke with the daughter Janet on the phone and answered all her questions about renal function Review of Systems Review of Systems: All systems reviewed & are unremarkable except as noted in HPI & below Physical Exam Physical Exam: General exam: Appears comfortable, no acute distress HEENT: Pupils are equal and reactive to light Neck: No JVD, neck is supple trachea is midline Respiratory system: Clear breath sounds bilaterally. Gastrointestinal: Abdomen is soft, non distended, non tender, bowel sounds are present CVS: Regular rate and rhythm. No murmurs, rubs or gallops Musculoskeletal: No joint or muscle tenderness Extremities: Non tender, 1+ edema, peripheral pulses are present Neuro: Oriented, no tremors, no focal neurological deficits Skin: No rashes Results & Data Vital Signs (Past 12 Hours) Vital Signs Temp Pulse Pulse Resp BP Pulse Ox 06/11/19 07:35 36.7 C 82 18 131/84 98 06/11/19 03:02 36.4 C L 89 18 151/83 H 98 06/10/19 23:03 36.6 C 94 H 18 156/79 H 96 Laboratory Results Laboratory Results - last 24 hr 06/11/19 06/11/19 05:30 05:30 WBC 4.57 L RBC 2.66 L Hgb 8.0 L Hct 25.5 L MCV 95.9 MCH 30.1 MCHC 31.4 L RDW Std Deviation 47.7 H RDW Coeff of Eladio 13.7 Plt Count 183 MPV 9.1 Sodium 143 Potassium 4.1 Chloride 108 H Carbon Dioxide 32 Anion Gap 3.0 BUN 38 H Creatinine 4.80 H* Est Cr Clr Drug Dosing 16.4 Est GFR ( Amer) 13.6 Est GFR (Non-Af Amer) 11.7 BUN/Creatinine Ratio 7.9 L Glucose 90 Calcium 8.4 L (1) CHF (congestive heart failure) Heart failure chronicity: unspecified Heart failure type: unspecified Qualified Code(s): I50.9 - Heart failure, unspecified (2) Anemia Anemia type: unspecified type Qualified Code(s): D64.9 - Anemia, unspecified
[2019-06-11 09:51] LABS: Appearance Urine Cloudy (Clear); Bilirubin Urine Negative (Negative); Blood Urine 3+ (Negative); Color Urine Red; Glucose Urine UA Negative (Negative); Ketones Urine Negative (Negative); Leukocyte Esterase Urine Negative (Negative); Nitrite Urine Negative (Negative); Protein Urine 2+ (Negative); Specific Gravity Urine 1.015 (1.000-1.030); Urobilinogen Urine Negative (Negative)
[2019-06-11 09:52] LABS: Sulfosalicylic Acid Urine Positive (Negative)
[2019-06-11 09:56] LABS: RBC Urine >30 /hpf (0-4)
[2019-06-11 09:58] LABS: Bacteria Urine Negative (Negative)
--- NOTE | 2019-06-11 11:24 | Hospitalist Progress Note ---
Date of Service June 11, 2019 Assessment & Plan (1) Volume overload: (2) Hypoxia: Present on admission with worsening SOB CXR showed congestive heart failure with small b/l pleural effusion No history of heat failure ProBNP above 14K Was started on Lasix 40mg IV TID that was discontinued due to worsening creatinine Nephrology on board for diuretic management ECHO showed left ventricular systolic is normal with ejection fraction 60 to 65%. Circumferential pericardial effusion with moderate organization/fibrinous debris cardiology on board Volume overload secondary to hypoalbuminemia with third spacing of fluid in the setting of acute kidney injury and proteinuria as per cardiology Lasix has been on hold due to worsening creatinine to 4.8 Pt has good urinary output Continue to monitor closely (3) GALEN (acute kidney injury): BUN/creatinine 24 and 3.36 on admission Creatinine September/2018 was 0.9 Creatinine at discharge from [facility] 05/21 1.59 Unknown etiology, + hematuria Bladder scan was negative for significant urinary retention Renal ultrasound showed no renal masses identified. No evidence of hydronephrosis creatinine continue to worsening to 4.8 today C3 and C4 were normal on 05/22/2019 at [facility] Nephro on board Case discussed with nephrology and suspect etiology to be glomerulonephritis Vasculitis work up such as complement pending Will try to get complement levels from [facility] which were pending at hospital discharge Nephrology discussed case with danyell Gonzales about renal biopsy to help with the diagnostic, daughter agreed to transfer for [facility] to [place] for a higher care and also the IR radiologist in [place] comes from [place] to get biopsy [facility] also if [facility] will get a biopsy tomorrow if transfer to their facility. Called hospitalist in [place] and discussed the case with Dr. CRAMER who accepted the patient on transfer Danyell Gonzales was notified and agreed with the Transfer to [place] Continue to hold lasix Continue monitor BMP (4) Electrolyte abnormality: K 4.1 today was on Potassium 40mg TID, that was placed on hold Continue monitor BMP (5) Metabolic encephalopathy: Possible related to acute illness No focal neuro deficit on exam Continue monitor closely Consider neuro consult if no improvement (6) Epidural abscess: (7) Iliopsoas abscess: MSSA bacteremia Was on IV cefazolin 2 g every 8 hours Sensitivities to be placed in chart -sensitive to doxycycline, daptomycin, Cipro, gentamicin, levofloxacin, linezolid, Bactrim, tigecycline, Vanco Blood cultures are currently pending ID on board recommended to continue Ancef renal dose 500mg IV Q12 until renal recovery as per ID Antibiotics to complete 07/05/2019 (8) Hematuria: Significant hematuria noted grossly with urination Possible due to glomerulonephritis UA positive for RBC Renal ultrasound showed no renal stone or hydronephrosis Hgb 8 today Consider Urology consult once stable (9) Hypertension: BP fluctuates If BP remains elevating, will add low dose amlodipine 2.5 mg Continue monitor BP (10) Anemia: Hgb 8.8 on admission Only notable signs of bleeding is hematuria Hgb 8.0 today Continue monitor h/h, will transfuse if hgb drops below 7 (11) Schizophrenia: Continue Abilify, Depakote, Seroquel (12) Arrhythmia, atrial: Brief episodes of arrhythmia on tele monitor Atenolol discontinued Continue Metoprolol 25 mg BID TSH within normal limit Cardiology on board (13) Anxiety and depression: Continue Cymbalta, clorazepate (14) High cholesterol: Continue statin (15) DVT prophylaxis: SCD/teds due to low hemoglobin and hematuria CODE STATUS FULL CODE Disposition: Will transfer to [place] for renal biopsy Accepted hospitalist physician Dr. Renata Felder Pt was seen and examined. Lying in bed with no distress He looks a little more awake today. His strength slightly improves Nephrology discussed case with daughter about kidney biopsy and daughter agreed Denies any chest pain, palpitation, dizziness and fever Physical Exam Physical Exam: General- No acute distress Head- atraumatic Eyes- PERRL, EOMI, ENT- oropharynx clear Neck- supple, no JVD Lungs- diminished BS Heart- regular rhythm; no murmur Abdomen- normal bowel sounds, soft, nontender Extremities- no calf tenderness, +edema Neuro- alert, oriented, PERRL, EOMI; no facial palsy; no dysarthria Skin- warm & dry Results & Data Vital Signs (Past 12 Hours) Vital Signs Temp Pulse Pulse Resp BP Pulse Ox 06/11/19 07:35 36.7 C 82 18 131/84 98 06/11/19 03:02 36.4 C L 89 18 151/83 H 98 (1) Anemia Anemia type: unspecified type Qualified Code(s): D64.9 - Anemia, unspecified (2) Volume overload Hypervolemia type: unspecified Qualified Code(s): E87.70 - Fluid overload, unspecified
--- NOTE | 2019-06-11 12:43 | Discharge Summary ---
Date of Service June 11, 2019 Admission HPI Per Admitting Provider This is a 64-year-old male who has significant past medical history of history of rectal cancer status post resection and chemo and radiation in remission, schizophrenia, psychosis, depression with anxiety, hypertension, hyperlipidemia, GERD, history of alcohol and tobacco abuse, chronic thromboembolic pulmonary hypertension, autonomic peripheral neuropathy who presents to ED due to shortness of breath of unknown duration. Patient is a very poor historian. History is obtained from other providers as well as [facility]. Apparently patient was sent to ED because of concern for blood clot in left upper extremity where he has a PICC line in place. An ultrasound was done at outside facility which was concerning for DVT. However, our ED physician ruled out DVT of left upper extremity and found patient to have evidence of congestive heart failure, new GALEN and anemia of unknown etiology. After speaking with [facility] it was found patient was hospitalized at [facility] on 05/08 to 05/23/2019 secondary to bacteremia due to MSSA secondary to iliopsoas abscess and sacral epidural abscess. He was placed on IV cefazolin 2 g every 8 hours. Left upper extremity PICC line was placed and he was transferred to SNF on 05/23/2019. At discharge patient H&H was 9.7, creatinine 1.59. According to nurse at SNF on admission patient was very alert and arousable and oriented. Over the past 15 days he has been becoming increasingly more confused and lethargic. He has been continuing to receive his IV antibiotics. Oral intake has been adequate per staff. I am unable to obtain accurate information from patient as he is currently confused stating he came from his apartment in [place]. He is unable to tell me why he is here. In ED work-up revealed elevated BUN and creatinine 24 and 3.36, K3.3, mag 1.7, proBNP 14,276, albumin 1.8, H&H 8.8 and 27.6, WBC 6.55. Chest x-ray revealed congestive heart failure, PICC placement in superior vena cava, small bilateral pleural effusions. Venous doppler or b/l lower ext and LUE negative for DVT. He received 40mg IV lasix while in ED. Admission Exam Per Admitting Provider Constitutional: WD/WN, obese, male, arousable, answers questions but inaccurately, vitals as above, NAD, sitting up in bed Head: Normocephalic, Atraumatic Eyes: PERRL, conjunctivae normal, anicteric sclerae ENMT: external ear and nose normal, oropharynx normal Neck: trachea midline, no thyromegaly normal visual inspection Respiratory: normal respiratory effort, lungs decreased bilaterally with bibasilar rhonchi, no wheezes or rales, on O2 via NCi. Normal insp/exp effort, no accessory muscle use Cardiovascular: RRR, no murmur, bilateral +2 lower extremity edema, scrotal edema, generalized anasarca, left upper extremity PICC line in place, bilateral radial pulse +2 and equal, no surrounding erythema, warmth. Vessels: no JVD or carotid bruit Chest: normal inspection of chest Abdomen: normal bowel sounds, protuberant abdomen, soft, nontender, no hepatosplenomegaly Musculoskeletal: no cyanosis or clubbing, extremities motor strength 5/5 Skin: no rashes, warm and dry normal turgor Neurologic: PERRL, EOMI, accommodation nl, no face palsy, no dysarthria CN's II-XI intact bilaterally and moves all extremities Psychiatric: A+Ox3 to basics only, euthymic affect Lymphatic: no cervical or axillary lymphadenopathy : deferred Principal Diagnosis Volume overload: Hypoxia GALEN (acute kidney injury) Electrolyte abnormality Metabolic encephalopathy Epidural abscess Iliopsoas abscess Hematuria Hypertension Anemia Schizophrenia Arrhythmia, atrial Anxiety and depression Discharge Exam General- No acute distress Head- atraumatic Eyes- PERRL, EOMI, ENT- oropharynx clear Neck- supple, no JVD Lungs- diminished BS Heart- regular rhythm; no murmur Abdomen- normal bowel sounds, soft, nontender Extremities- no calf tenderness, +edema Neuro- alert, oriented, PERRL, EOMI; no facial palsy; no dysarthria Skin- warm & dry Discharge Data Allergies Allergy/AdvReac Type Severity Reaction Status Date / Time Penicillins Allergy Severe anaphylaxis Unverified 06/06/19 13:56 vancomycin Allergy Severe Rash Verified 06/06/19 18:53 chlordiazepoxide AdvReac Unknown nausea/vomi Unverified 06/06/19 13:56 ting tramadol AdvReac Unknown heart Unverified 06/06/19 13:56 racing Consultations 06/06/19 15:41 ED Decision to Admit Stat 06/06/19 16:18 Consult Nephrology Routine 06/06/19 18:51 Consult Case Management - Discharge Planning Routine Consult Infectious Diseases Routine 06/08/19 08:00 Consult Cardiology Routine Ordered Studies 06/06/19 13:02 US venous doppler LE BI Stat US venous doppler UE LT Stat 06/06/19 16:18 US renal/blad retro comp Urgent 06/06/19 16:20 US effusion-chest/mediastinum Urgent 06/06/19 17:16 CT abd pelvis wo con Stat SINGLE VIEW CHEST CLINICAL HISTORY: Follow-up congestive heart failure. FINDINGS: An AP, portable, upright chest radiograph is compared to study dated 06/06/2019. The examination is degraded by portable technique and patient rotation. A left-sided PICC line is unchanged in position. The heart is enlarged and there is atherosclerotic calcification of the thoracic ureter. There is pulmonary vascular congestion and interstitial edema. There are small pleural effusions with bibasilar consolidation. No pneumothorax is seen. The skeletal structures are osteopenic. The bony thorax is grossly intact. IMPRESSION: 1. Cardiomegaly with evidence of congestive failure and interstitial edema. This has modestly improved from yesterday. 2. Small pleural effusions and bibasilar consolidation. ACT 112: Negative or not required by law. Electronically signed by: Santiago Richardson M.D. 06/07/2019 11:10 AM Dictated: 06/07/19 1109 Transcribed: 06/07/[address] SCAN OF THE ABDOMEN AND PELVIS WITHOUT CONTRAST CLINICAL HISTORY: Abdominal pain COMPARISON STUDY: Renal ultrasound dated 06/06/2019 TECHNIQUE: CT scan of the abdomen and pelvis was performed from the lung bases to the proximal femurs. Images are reviewed in the axial, sagittal, and coronal planes. IV contrast was not administered for this examination. A dose lowering technique was utilized adhering to the principles of ALARA. CT DOSE: 1368.51 mGy.cm FINDINGS: Lower chest: There are moderate bilateral pleural effusions. There is a small pericardial effusion. There are dependent lower lobe atelectatic changes. Liver: The unenhanced liver is normal in size, contour, and attenuation. There is no intrahepatic biliary ductal dilatation. Gallbladder: Unremarkable. Spleen: Normal in size and attenuation. Pancreas: Unremarkable. Adrenal glands: Unremarkable. Kidneys: There is no hydronephrosis. There are several left renal calculi, the largest of which measures 6 mm. No ureteral or bladder calculi are visualized. Bowel: There are no transition zones to indicate bowel obstruction. There are no findings to indicate acute appendicitis. There is a low rectosigmoid anastomotic suture line. There is presacral soft tissue thickening, possibly treatment related. There is a right anterior mid abdominal bowel anastomotic suture line. Peritoneum: There is no free air. There is trace pelvic fluid/retroperitoneal stranding. Vasculature: The abdominal aorta is normal in course and caliber. Adenopathy: None. Pelvic viscera: Prostatic calcifications are visualized. The prostate is borderline enlarged. Skeletal structures: No destructive osseous lesions are seen. Infiltration of subcutaneous fat within the right lower quadrant is nonspecific but could relate to a prior ostomy site. IMPRESSION: 1. Postsurgical changes involving the bowel with presacral soft tissue thickening, likely treatment-related 2. No evidence of bowel obstruction. No evidence of free air 3. Left-sided nephrolithiasis. No ureteral or bladder calculi identified 4. Moderate bilateral pleural effusions with associated lower lobe compressive atelectatic change 5. Mild generalized body wall edema ACT 112: Negative or not required by law. Electronically signed by: Rey Zambrano M.D. 06/06/2019 6:31 PM Dictated: 06/06/191824 Transcribed: 06/06/191824 US effusion-chest/mediastinum CLINICAL HISTORY: CHF, pleural effusion COMPARISON STUDY: No previous studies for comparison. FINDINGS: Ultrasonography the chest was performed. There are bilateral pleural effusions with underlying atelectatic lung. The right pleural effusion is es timated measure 550 cc, the left pleural effusion 530 cc. IMPRESSION: Bilateral pleural effusions estimated to measure 550 cc on the right and 530 cc on the left. ACT 112: Negative or not required by law. Electronically signed by: Rey Zambrano M.D. 06/06/2019 6:23 PM Dictated: 06/06/191821 Transcribed: 06/06/191821 EXAMINATION: RENAL ULTRASOUND CLINICAL HISTORY: Acute renal insufficiency COMPARISON STUDY: FINDINGS: The right kidney measures 14 cm. The left kidney measures 14 cm. There is no evidence of hydronephrosis. There is a suspected 8 mm lower pole left renal calculus. There is increased renal cortical echogenicity consistent with medical renal disease. No bladder masses were visualized. The right ureteral jet was not visualized. IMPRESSION : 1. No renal masses identified. No evidence of hydronephrosis 2. Slight increase in renal cortical echogenicity, a finding consistent with medical renal disease 3. Left-sided nephrolithiasis ACT 112: Negative or not required by law. Electronically signed by: Rey Zambrano M.D. 06/06/2019 6:25 PM Dictated: 06/06/191823 Transcribed: 06/06/191823 US venous doppler LE BI HISTORY: Pain. Edema. swelling COMPARISON STUDY: None. FINDINGS: There is normal compressibility, flow, and augmentation within the bilateral lower extremity deep venous systems. IMPRESSION: No DVT within the right or left lower extremity. ACT 112: Negative or not required by law. The above report was generated using voice recognition software. It may contain grammatical, syntax or spelling errors. Electronically signed by: Pelon Posadas M.D. 06/06/2019 3:22 PM Dictated: 06/06/19 1522 Transcribed: 06/06/191521 US venous doppler UE LT HISTORY: Pain. Edema. poss clot COMPARISON STUDY: None. FINDINGS: The internal jugular vein is patent. There is normal flow within the subclavian vein. There is normal flow and compressibility within the left axillary, basilic, brachial, radial, ulnar, and visualized cephalic veins. IMPRESSION: No DVT within the upper extremity. ACT 112: Negative or not required by law. The above report was generated using voice recognition software. It may contain grammatical, syntax or spelling errors. Electronically signed by: Pelon Posadas M.D. 06/06/2019 3:23 PM Dictated: 06/06/19 1522 Transcribed: 06/06/19 152 XR chest 1V portable CLINICAL HISTORY: SOB COMPARISON STUDY: No previous studies for comparison. FINDINGS: Moderate cardiomegaly. Prominent pulmonary vasculature. Small bilateral pleural effusions. PICC catheter in superior vena cava. IMPRESSION: 1. Congestive heart failure. 2. PICC catheter positioned in the superior vena cava. ACT 112: Negative or not required by law. The above report was generated using voice recognition software. It may contain grammatical, syntax or spelling errors. Electronically signed by: Pelon Posadas M.D. 06/06/2019 1:23 PM Dictated: 06/06/19 1323 Transcribed: 06/06/19 0953 Hospital Course (1) Volume overload: (2) Hypoxia: Present on admission with worsening SOB CXR showed congestive heart failure with small b/l pleural effusion No history of heat failure ProBNP above 14K Was started on Lasix 40mg IV TID that was discontinued due to worsening creatinine Nephrology on board for diuretic management ECHO showed left ventricular systolic is normal with ejection fraction 60 to 65%. Circumferential pericardial effusion with moderate organization/fibrinous debris cardiology on board Volume overload secondary to hypoalbuminemia with third spacing of fluid in the setting of acute kidney injury and proteinuria as per cardiology Lasix has been on hold due to worsening creatinine to 4.8 Pt has good urinary output Continue to monitor closely (3) GALEN (acute kidney injury): BUN/creatinine 24 and 3.36 on admission Creatinine September/2018 was 0.9 Creatinine at discharge from [facility] 05/21 1.59 Unknown etiology, + hematuria Bladder scan was negative for significant urinary retention Renal ultrasound showed no renal masses identified. No evidence of hydronephrosis creatinine continue to worsening to 4.8 today C3 and C4 were normal on 05/22/2019 at [facility] Nephro on board Case discussed with nephrology and suspect etiology to be glomerulonephritis Vasculitis work up such as complement pending Will try to get complement levels from [facility] which were pending at hospital discharge Nephrology discussed case with danyell Gonzales about renal biopsy to help with the diagnostic, daughter agreed to transfer for the biopsy Called [facility] for transfer that recommended to transfer to [place] for a higher care and also the IR radiologist in [place] comes from [place] to get biopsy done outpatient. [facility] not sure also if pt will get a biopsy tomorrow if transfer to their facility. Called hospitalist in [place] and discussed the case with Dr. CRAMER who accepted the patient on transfer Danyell Gonzales was notified and agreed with the Transfer to [place] Continue to hold lasix Continue monitor BMP (4) Electrolyte abnormality: K 4.1 today was on Potassium 40mg TID, that was placed on hold Continue monitor BMP (5) Metabolic encephalopathy: Possible related to acute illness No focal neuro deficit on exam Continue monitor closely Consider neuro consult if no improvement (6) Epidural abscess: MSSA bacteremia Was on IV cefazolin 2 g every 8 hours Hold IV cefazolin for now, consult infectious disease Sensitivities to be placed in chart -sensitive to doxycycline, daptomycin, Cipro, gentamicin, levofloxacin, linezolid, Bactrim, tigecycline, Vanco Blood cultures are currently pending Antibiotic to complete 07/05/[address] (7) Iliopsoas abscess: MSSA bacteremia Was on IV cefazolin 2 g every 8 hours Sensitivities to be placed in chart -sensitive to doxycycline, daptomycin, Cipro, gentamicin, levofloxacin, linezolid, Bactrim, tigecycline, Vanco Blood cultures are currently pending ID on board recommended to continue Ancef renal dose 500mg IV Q12 until renal recovery as per ID Antibiotics to complete 07/05/2019 (8) Hematuria: Significant hematuria noted grossly with urination Possible due to glomerulonephritis UA positive for RBC Renal ultrasound showed no renal stone or hydronephrosis Hgb 8 today Consider Urology consult once stable (9) Hypertension: BP fluctuates If BP remains elevating, will add low dose amlodipine 2.5 mg Continue monitor BP (10) Anemia: Hgb 8.8 on admission Only notable signs of bleeding is hematuria Hgb 8.0 today Continue monitor h/h, will transfuse if hgb drops below 7 (11) Schizophrenia: Continue Abilify, Depakote, Seroquel (12) Arrhythmia, atrial: Brief episodes of arrhythmia on tele monitor Atenolol discontinued Continue Metoprolol 25 mg BID TSH within normal limit Cardiology on board (13) Anxiety and depression: Continue Cymbalta, clorazepate (14) High cholesterol: Continue statin Weakness Fall precaution Continue PT/OT (15) DVT prophylaxis: SCD/teds due to low hemoglobin and hematuria CODE STATUS FULL CODE Disposition: Will transfer to [place] for renal biopsy Accepted hospitalist physician Dr. Cramer Total Time Total Time Spent Total Time Spent (In Minutes): 35 minutes Total Time Includes: Examination of the Patient, Discharge Planning, Medication Reconciliation, Communication With Other Providers and Other Discharge Plan Discharge Items Patient Disposition: Transfer Acute Care Hospital Reason For Visit: CHF, GALEN, AMS Discharge Diagnosis: Volume overload: Hypoxia GALEN (acute kidney injury) Electrolyte abnormality Metabolic encephalopathy Epidural abscess Iliopsoas abscess Hematuria Hypertension Anemia Schizophrenia Arrhythmia, atrial Anxiety and depression Activity: Resume your previous activity Non-emergency contact: Primary Care Provider and General Technician Call non-emergency contact if: you have any medication questions and your temperature is above 101 Follow-up/Referrals: Juice Garner [Primary Care Provider] - Diet: Heart Healthy Addtl Attending Provider Instructions: Follow up with your primary care provider once discharge from [facility] Transfer to [facility] to get renal biopsy done (Please consult Interventional radiology) Accepted hospitalist physician Dr. BELA Renee 2mg IV q8h to complete on 07/05/2019 as per Infectious disease On Metoprolol tartrate 25mg q6h for atrial arrhthmia Vasculitis work up pending Monitor BMP and CBC Fall precaution Pending Studies at Discharge: Yes Studies:: SATISH, Anti-Myeloperoxidase, , Anti-Proteinase, ANCA, DS DNA ab, Complement factor Stand-Alone Forms: My [facility] Skilled Items Patient informed of condition?: Yes (Patient and daughter Janet) DNR: No Discharge Level of Care: Other Communicable Disease: No Discharge Prognosis: Deteriorating Lines: Peripheral IV Urinary Catheter: Yes Medications and DC Order Prescriptions: Continued cyclobenzaprine 10 mg Tablet 10 mg PO BID RF: 0 famotidine 40 mg Tablet 40 mg PO QAM RF: 0 divalproex 500 mg Tablet,Delayed Release (Dr/Ec) 500 mg PO HS RF: 0 gabapentin 100 mg Capsule 200 mg PO TID RF: 0 clorazepate dipotassium 7.5 mg Tablet 7.5 mg PO QID RF: 0 aripiprazole 10 mg Tablet 10 mg PO HS RF: 0 duloxetine 60 mg Capsule,Delayed Release(Dr/Ec) 60 mg PO QAM RF: 0 atorvastatin 20 mg Tablet 20 mg PO QAM RF: 0 divalproex [Depakote] 250 mg Tablet,Delayed Release (Dr/Ec) 250 mg PO QAM RF: 0 atenolol 25 mg Tablet 25 mg PO QAM RF: 0 cefazolin in 0.9% sod chloride 2 gram/100 mL Solution 2 g IV Q8H RF: 0 quetiapine [Seroquel XR] 300 mg Tablet Extended Release 24 Hr 300 mg PO HS RF: 0 Calcium-Vitamin D3 250-125mg 1 tab PO TID RF: 0 Discontinued Heparin Flush 5ml 5 ml IV Q6H RF: 0 Discharge Orders: Discharge Order (Routine); Ordered 06/11/19 Ordered By: Hebert Perla Admission Data Admit Date/Time: 06/06/19 16:43 Attending Provider: Hebert Perla Admit Provider: Carl Teague Primary Care Provider: Juice Garner Other Providers: Emilia Ramos ; Carl Teague ; Vero Meza ; [facility], ; Surjit Koo O
[2019-06-13 20:05] LABS: Anti-DNASE B Ab <95 U/mL (< 301); Anti-dsDNA Recombinant <1 IU/mL; Complement C1q 9.1 mg/dL (5.0-8.6); Complement Total(CH50) 53 U/mL (31-60)
== END 2019-06-11 14:50 | disposition short-term general hospital (02) | DRG 291 ==
LOC: ED 12:01 → SUATTDRO 16:43 → 2S 16:43